=== PATIENT | female | born 1965 | race Hispanic/Latino ===

== ENCOUNTER 2024-12-07 00:36 | Day surgery (SDC) | payer OTHER, SELFPAY ==
[2024-12-01 13:20] VITALS: BP 123/70; PULSE 71; RESP 16; TEMP 37; O2SAT 99; BMI 31.5
--- NOTE | 2024-12-01 13:44 | PC.NURSE ---
Report to the Outpatient Waiting Room, entrance under the green pavilion located off [facility], at time __11:15am____ on date ___12/07/24____. Planned Procedure Time: __1:15pm .? Time changes happen often and if your time is changed the preop area will call you the afternoon before. - You and your visitor will be asked to self-screen and do not enter if you have any COVID symptoms. Please call surgeon if you need to reschedule. - A mask is optional within the hospital at this time. NOTHING TO EAT OR DRINK FOR 8 HOURS PRE-OP ER DR GUEVARA- CLEAR LIQUIDS ONLY UNTIL 5:30AM./TOTAL OF 20 OZ. - No food from midnight until time of surgery and no smoking, or chewing tobacco (or any form of nicotine). No chewing gum, candy or mints. Take only the following medications with a SIP of water on the morning of surgery: none DO NOT STOP ANY OF YOUR OTHER PRESCRIPTION MEDICATIONS PRIOR TO SURGERY EXCEPT THE FOLLOWING Hold all vitamins and supplements for 3 days per anesthesiologist. Medications to discontinue per physician NONE Date to take last dose Please no make-up, nail wolof, hairspray, perfume, deodorant, or body powder the day of surgery.? No jewelry (including any body piercings) or valuables the day of surgery, leave them at home.? Please take a shower or bath the night before, or the morning of, surgery with an antibacterial soap.? Wear comfortable, loose fitting clothing.? - Jewelry must be removed prior to entering the operating room.? Rings and piercings that are not removed may be cut off. - The hospital will not accept responsibility for valuables.? - Please leave all valuables, including medications, at home the day of surgery. If you are going home after surgery, a licensed set key driver must drive you home.? - NO public transportation without another adult if you receive anesthesia. - We recommend that an adult stay with you for 24 hours following discharge. - We also recommend that you do not drive, make important decision, drink alcoholic beverages, or take any drugs that were not prescribed by your health care provider for at least 24 hours after your discharge time. Follow any additional instructions given to you from your surgeon. Telephone instructions given to ____PATIENT and asked if any additional questions and then verbalized understanding. Patient advised to call surgeon office or pre surgery nurse liaison [phone] if any additional questions.
[2024-12-07] VITALS (7 sets, daily range): BP systolic 107–141; BP diastolic 42–93; PULSE 51–69; RESP 12–17; TEMP 36.1–37.4; O2SAT 95–100
--- NOTE | ~2024-12-07 | XR_ITS ---
EXAMINATION: XR surgery orthopedic DATE: 12/07/2024 13:32 INDICATION: Left first digit ligament repair TECHNIQUE: 5 fluoroscopic images of the left thumb were obtained during procedure performed by Dr. Ab kirby. Radiologist was not present for the imaging or procedure. The amount of fluoroscopy time us ed during this procedure was 0.1 minutes. Total DAP was 0.599 cGycm^2. COMPARISON: None. FINDINGS: Line initial image demonstrates percutaneous fixation pins advanced into the ulnar aspect o f the base of the first proximal phalanx and head of the first metacarpal. There is radial subluxatio n at the first metacarpophalangeal joint suggesting insufficiency of the ulnar collateral ligament co mplex. This subluxation appears reduced on the subsequent images. The fixation pins have been removed on the final image where there is normal alignment on the dorsal palmar projection which could be du e to interval ulnar collateral ligament repair. There is a small amount of expected postoperative gas in the soft tissues at the ulnar side of the first metacarpophalangeal joint. No fractures identifie d. 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 IMPRESSION: 1. Fluoroscopy utilized during likely first metacarpophalangeal ulnar collateral ligament repair. See procedure note for further detail. Reviewed, dictated and finalized at location A. IMPRESSION: 1. Fluoroscopy utilized during likely first metacarpophalangeal ulnar collatera l ligament repair. See procedure note for further detail.
--- OUTSIDE RECORDS SUMMARY | 2024-12-07 00:38 | XMS_ITS | Data Portability ---
Author Organization [place] [facility], Main Office Address [address] [place] [address] Care Team Providers Care Radiology Equipment Servicer Name Role Phone AJAY LAMBERT Primary Care Provider [phone] AJAY LAMBERT Referring Provider Assessment Encounter Date Assessment Date Assessment LastModified by Organization Details LastModified Time 04/01/2023 04/01/2023 57-year-old female presents for evaluation of her right hand. She is Tamazight-speaking and the visit was conducted with a video java golden gate developer. She is a previous patient from Dr. Lopez. She has a history of a cyst excision of the right index D IP joint on 10/17/2021 and had a fusion of the right index DI P on 08/28/2022. Overall she has been doing fine. She reports some numbness tingling in the fingers radiating from the wrist. She does have pain at night that she has to shake out. She has not had any treatments for this. Review of systems per patient questionnaire Physical exam: She has a well-healed incision over her right ankle that Andrew finger. No pain over the finger. She has some subjectively diminished sensation, two-point discrimination intact throughout the fingers. Brisk cap refill, 2+ radial pulse. He does have positive Tinel's and Phalen's over the wrist. She has recovered from her previous surgeries, but now has some carpal tunnel symptoms. We will begin with a course of meloxicam and a carpal tunnel brace for nights. We will have her follow-up in 2 months for recheck. She is in agreement with the plan, all questions concerns were addressed. Not available 04/01/2023 23:13:51 07/20/2024 07/20/2024 59-year-old female presents for evaluation of her bilateral hands. She reports a new problem with cysts on multiple fingers. Visit today was done via video java golden gate developer. We last saw her in March of 2023. She has a history of a mucous cyst on her right index finger status post removal with Dr. Lopez in 2021 and a fusion of the right index D IP in 2022. She now has similar cysts on her right hand on the middle and ring D IP joints and also on the left middle D IP joint. She reports they get bigger and smaller. They bother her with movement of the hand. At her last visit we saw her for bilateral carpal tunnel concerns and she says those are resolved. She has proximally 5 mm mucous cysts on the dorsal D IP joint of the right middle and ring finger and left middle finger. She has sensation intact to light touch throughout. 2+ radial pulse. X-rays were reviewed, demonstrating previous screw in the right index finger intact, with degenerative changes of the other small joints We will begin with a course of anti-inflammatori es for her mucous cysts. We gave her an order for meloxicam. We will have her follow-up as needed. If she has persistent symptoms, the next step would be to consider aspiration or surgical excision. She is in agreement with the plan. Not available 07/20/2024 17:15:12 09/21/2024 09/21/2024 59-year-old female presents for evaluation of her left thumb. She had a fall about 3 weeks ago and jammed her thumb. Since then she has had pain, swelling, and weakness with gripping. She presented to the emergency room where she was placed into a fiberglass splint. She has weaned herself out of that in his wearing a thumb spica brace. She is Tamazight-speaking, visit today was conducted with a family member assisting with translating Review of systems per patient questionnaire Physical exam: She has tenderness over the thumb UCL proximally. She has no firm endpoint with increased gapping compared to the contralateral side. She has sensation intact to light touch throughout, 2+ radial pulse X-rays reviewed, demonstrating no acute bony abnormality She has a sprain of the thumb UCL proximally. Given her increased laxity with no endpoint, I would like to send her for MRI to confirm the diagnosis and evaluate for the presence of a Stener lesion. If the diagnosis is confirmed, I would send her to a hand specialist to discuss surgery for ligament repair versus reconstruction. She also complains of a digital mucous cyst on her D IP joint, and we discussed that if she is getting surgery for the thumb they can take care of that as well at the same time. She is in agreement with the plan. We will have her follow-up after the MRI. Not available 09/21/2024 16:44:37 10/12/2024 10/12/2024 59-year-old female presents for follow-up of her left hand. She had a thumb UCL injury that we sent for an MRI. She is here to review that. She still has persistent cyst over her dorsal ring finger. Otherwise she reports feeling better, rates 1 /10 for the left side. She still has tenderness and some swelling over the thumb UCL. She also has a mucous cyst over the DP of the ring finger MRI was reviewed, demonstrating a thumb UCL tear Given her ligament tear, I would like to refer her to a hand specialist for evaluation of treatment procedures which may include surgery. With regards to her mucous cyst, she says it is becoming more painful and she wants to get rid of it. We performed an aspiration and cortisone injection of the cyst. We got a couple cc of gelatinous material consistent with a cyst. She will follow up as needed. Not available 10/12/2024 16:29:17 Plan of Treatment Reminders Order Date Submit Date Provider Last Modified By Organization Details Last Modified Time Details Appointments None recorded. Lab None recorded. Referral hand surgeon referral - Please contact pt to schedule apt for L thumb. 2024 025 AUREA Gomes MD, [address], [place], [address], 5 17:35:20 Procedures injection/ aspiration joint/burs a (PROC) 2024 025 [email or web address] 1 In-Office Order, Internal Use Only DO Not Attach Compendium DO Not Attach Compendium, Do Not Delete/merge, [id number] 15:18:41 injection/ aspiration joint/burs a (PROC) - in office procedure, administer ed by provider 2022 023 [email or web address] In-Office Order, Internal Use Only DO Not Attach Compendium DO Not Attach Compendium, Do Not Delete/merge, [id number] 3 15:16:26 Surgeries None recorded. Imaging MRI, thumb(s), w/o contrast 2024 025 [facility] ([facility]), [address] [place], [address], 5 20:09:31 XR, hand, 3 or more view 2024 025 [email or web address] [facility], [address], [place], [address], 5 08:50:45 XR, hand, 3 or more view 2022 023 [email or web address] [facility], [address], [place], [address], 3 16:11:20 Medication Orders bupivacain e HCl 0.5 % (5 mg/mL) injection solution 2024 0[address] [facility], [address] [place] [address], [id number], 5 15:30:31 Kenalog 10 mg/mL suspension for injection [address] [facility] [address] [facility], [address] [place] [address], [id number], 5 15:30:31 Mobic 15 mg tablet 2024 025 [facility], [address] [place] [address], [id number], 5 17:21:25 Mobic 15 mg tablet 2022 [email or web address] [facility], [address] [place] [address], [id number], 16:31:11 Kenalog 10 mg/mL suspension for injection 2022 023 Not available 16:31:22 ropivacain e (PF) 5 mg/mL (0.5 %) injection solution 2022 023 [email or web address] Not available 16:31:18 meloxicam 7.5 mg tablet 2022 023 [email or web address] [facility], [address] [place] [address], [id number], 16:31:26 Patient TargetsNo targets recorded. Patient InstructionsNo instructions recorded. Reason for Referral Hand Surgeon Referral for Pa in in left thumb L thumb UCL Please contact pt to schedule apt for L thumb. Referring Physician: Ayad Back, Orthopedic Surgery, Encounter Date: 10/12/2024 Results Created Date Observation Date Name Description Value Unit Range Abnormal Flag Note LastModifiedBy Organization Detail LastModifiedTime 11/05/19 23 XR, hand, 3 or more view No observ ation record ed. [email or web address] [facility] [place] [facility] [address], [place], [address], 11/04/2022 16:11:19 11/04/19 24 11/04/2023 XR, foot [facility] [address] [place] [address] Patien t Name: DOMINGO MENDOZA Access ion #: [id number] Sex: F : 1964 9 Dictat ed By: Coy Sharp Attend ing Physic shiraz: VANIA LAMBERT Orderi Physic shiraz: VANIA LAMBERT Exam Date: 2023 16:48 PM Exam Name: XR FOOT LT 3V+ Admitt ing Diagno sis(es ): CLINIC AL INDICA TION: pain TECHNI QUE: 3 radiog raphic views of the left foot were obtain ed. FINDIN GS/ IMPRES YAIR: There is no eviden ce of acute fractu re or disloc ation. The visual ized joint space is well mainta ined. The alignm ent is anatom ical. There is no radiop aque foreig n body. Electr onical ly Signed by: Coy Sharp at 2023 17:44: 49 PM Page 1 [email or web address] [facility] ([facility]aging) [address] [place], [address], 01/19/2024 08:59:12 07/01/20 24 07/01/2024 XR, lumba r spine [facility] [address] [place] [address] Patien t Name: STEVEN WALTERJOEL JIMENEZ Access ion #: [id number] Sex: F : 1964 8 Dictat ed By: Mireya Valdez Attend ing Physic shiraz: VANIA LAMBERT Orderi Physic shiraz: VANIA LAMBERT Exam Date: 2023 15:03 PM Exam Name: XR L SPINE Admitt ing Diagno sis(es ): INDICA TION: LBP COMPAR CARLITO: None TECHNI QUE: 3 views of the lumbar spine were obtain ed. FINDIN GS: The lumbar verteb ral alignm ent is normal . Modera te degene rative disc diseas e at L5-S1. No acute fractu re, verteb ral compre ssion deform ity or aggres sive osseou s lesion s. The parave rtebra l soft tissue s are grossl y unrema rkable . IMPRES YAIR: No acute fractu re. Electr onical ly Signed by: Mireya Valdez at 2023 16:39: 59 PM Page 1 INTERFACE [facility] ([facility]) [address] [place], [address], 07/01/2024 17:40:43 07/20/19 25 XR, hand, 3 or more view No observ ation record ed. [email or web address] [facility] [place] [address], [place], [address], 07/20/2024 15:26:37 09/20/19 25 09/14/2024 XR, hand, 3 or more view No observ ation record ed. [email or web address] Not Available 09/03 16:50:00 10/05/19 25 10/04/2024 MRI, thumb (s), w/o contr ast No observ ation record ed. [facility] [address] [place], [address], 10/12/2024 09:42:06 Result Notes None recorded. Problems Name Problem SNOMED Code Status Onset Date Resolution Date Notes Provider Name and Address Organization Details Recorded Time Digital mucous cyst of right hand 1335875435177 103 Active 2021 Not Available [facility] 3 18:52:55 Pain of left hand 7959630488513 03 Active 2021 Not Available [facility] 3 18:52:56 Pain in right hand 0235451385986 09 Active 2021 Not Available [facility] 3 18:52:56 Osteoarthr itis 345671732 Active 2021 Not Available [facility] 3 18:52:56 Localized, primary osteoarthr itis of the hand Active 2022 VIDA Pete null, [employer] [facility] [employer] 3 14:07:45 Localized, primary osteoarthr itis of the hand 843004728 Active 2022 Lizzy Rodriguez null, [employer] 3 15:15:12 Pain of bilateral hands 6664929779446 9109 Active 2024 VIDA Kimble null, [employer] [facility] [employer] 5 15:27:14 Pain in left thumb 3846224993745 100 Active 2024 Lashae Paz ATC L null, [place] [employer] [facility] [employer] 16:18:02 Problem Notes None recorded. Procedures Surgical History Date Name Laterality Status Provider Name and Address Organization Details Recorded Time 10/13/19 Ortho - Cortisone Injection completed Ayad Back MD [address], [facility] [address], [place], [address], [facility] [employer] 10/12/2024 16:27:13 Appendectomy completed Not Available [employer] 09/03/2022 18:52:07 Imaging Results None recorded. Procedure Notes None recorded. Medical Equipment None Reported. Medications Name Sig Start Date Stop Date Status Note LastModified by Organization Details LastModified Time cyclobenzap rine 10 mg tablet 04/10 completed Not Available Not Available Not Available amoxicillin 500 mg capsule TAKE ONE CAPSULE BY MOUTH EVERY 8 HOURS FOR 10 DAYS with a meal 08/12 completed Not Available Not Available Not Available metformin 500 mg tablet 04/10 completed Not Available Not Available Not Available atorvastati n 20 mg tablet 04/10 completed Not Available Not Available Not Available cetirizine 10 mg tablet TAKE ONE TABLET BY MOUTH EVERY MORNING FOR ALLERGIES 07/14 completed Not Available Not Available Not Available Tab-A-Avtar tablet 04/10 completed Not Available Not Available Not Available azithromyci n 250 mg tablet TAKE 2 TABLETS BY MOUTH ON DAY 1, THEN TAKE 1 TABLET DAILY ON DAYS 2-5 07/20 completed Not Available Not Available Not Available ibuprofen 800 mg tablet TAKE ONE TABLET BY MOUTH THREE TIMES DAILY, MORNING, MIDDAY & IN THE EVENING 07/20 completed Not Available Not Available Not Available hydrocodone 5 mg-acetamin ophen 325 mg tablet TAKE ONE TABLET BY MOUTH EVERY 6 HOURS NEEDED pain (moderate 4-6 ON scale) 07/14 completed Not Available Not Available Not Available meloxicam 15 mg tablet TAKE ONE TABLET BY MOUTH EVERY MORNING FOR PAIN active Not Available Not Available No t Available bupivacaine HCl 0.5 % (5 mg/mL) injection solution Take 0.5 mL by injection route. 2024 active Not Available Not Available Not Avai lable clobetasol 0.05 % topical cream APPLY TO THE AFFECTED AREA(S) TWICE DAILY EVERY MORNING & EVENING 07/20 completed Not Available Not Available Not Available permethrin 5 % topical cream 04/10 completed Not Available Not Available Not Available sulfamethox azole 800 mg-trimetho prim 160 mg tablet 04/10 completed Not Available Not Available Not Available peg-electro lyte solution 420 gram oral solution 04/10 completed Not Available Not Available Not Available triamcinolo ne acetonide 0.1 % topical cream 04/10 completed Not Available Not Available Not Available levothyroxi ne 25 mcg tablet TAKE ONE TABLET BY MOUTH EVERY MORNING 30 MINUTES BEFORE BREAKFAST FOR THYROID active Not Available Not Available No t Available meloxicam 7.5 mg tablet TAKE ONE TABLET BY MOUTH EVERY DAY 07/14 completed Not Available Not Available Not Available Kenalog 10 mg/mL suspension for injection Take 0.5 mL by injection route. 2024 active [facility] [place]NOTE 2]: 0003- 0494- 20 Not Available Not Available Not Available benzonatate 100 mg capsule TAKE ONE CAPSULE BY MOUTH THREE TIMES DAILY NEEDED FOR 7 DAYS 02/13 completed Not Available Not Available Not Available promethazin e 25 mg tablet 04/10 completed Not Available Not Available Not Available omeprazole 20 mg capsule,del ayed release TAKE ONE CAPSULE BY MOUTH EVERY DAY FOR 10 DAYS 02/13 completed Not Available Not Available Not Available ergocalcife rol (vitamin D2) 1,250 mcg (50,000 unit) capsule TAKE ONE CAPSULE BY MOUTH ONCE a WEEK 02/13 completed Not Available Not Available Not Available clobetasol 0.05 % topical ointment 04/10 completed Not Available Not Available Not Available ibuprofen 600 mg tablet 04/10 completed Not Available Not Available Not Available estradiol 0.01% (0.1 mg/gram) vaginal cream 04/10 completed Not Available Not Available Not Available methylpredn isolone 4 mg tablets in a dose pack Use as directed on package 08/12 completed Not Available Not Available Not Available fluticasone propionate 50 mcg/actuati on nasal spray,suspe nsion SPRAY ONE PUFF IN EACH NOSTRIL EVERY DAY FOR ALLERGIES 02/13 completed Not Available Not Available Not Available clotrimazol e 1 % topical cream 04/10 completed Not Available Not Available Not Available amoxicillin 875 mg-potassiu m clavulanate 125 mg tablet 08/12 completed Not Available Not Available Not Available amoxicillin 500 mg-potassiu m clavulanate 125 mg tablet TAKE ONE TABLET BY MOUTH TWICE DAILY EVERY MORNING & EVENING. drink with large GLASS of water. active Not Available Not Available No t Available rosuvastati n 10 mg tablet TAKE ONE TABLET BY MOUTH AT BEDTIME 02/13 completed Not Available Not Available Not Available nitrofurant oin monohydrate /macrocryst als 100 mg capsule TAKE 1 CAPSULE BY MOUTH TWICE A DAY 04/10 completed Not Available Not Available Not Available lidocaine (PF) 10 mg/mL (1 %) injection solution In office injection administe red by the provider 08/12 completed [facility] [place]NOTE 2]: 0409- 4276- 17 Not Available Not Available Not Available calcium 600 mg (as carbonate)- vitamin D3 10 mcg (400 unit) tablet 04/10 completed Not Available Not Available Not Available Pylera 140 mg-125 mg-125 mg capsule TAKE THREE CAPSULES BY MOUTH FOUR TIMES DAILY FOR 10 DAYS 07/14 completed Not Available Not Available Not Available ropivacaine (PF) 5 mg/mL (0.5 %) injection solution IN OFFICE 07/14 completed [facility] [place]NOTE 2] 39433 -064- 01 Not Available Not Available Not Available Vitals Date Recorded Body height Body mass index (BMI) Body weight Provider Name and Address Organization Details Last Updated DateTime 07/20/2024 157.48 cm 31.1 kg/m2 31388.7 g VIDA Kimble [employer] 07/20/2024 15:25:16 Date Recorded Body height Body mass index (BMI) Body weight Provider Name and Address Organization Details Last Updated DateTime 09/21/2024 157.48 cm 30.4 kg/m2 93781.33 g STACY Fernandes [employer] 09/21/2024 15:36:30 Date Recorded Body height Body mass index (BMI) Body weight Provider Name and Address Organization Details Last Updated DateTime 10/12/2024 157.48 cm 30.4 kg/m2 61742.33 g Rahel Darby [employer] 10/12/2024 15:02:51 Date Recorded Body height Provider Name an d Address Organization Details Last Updated DateTime 11/04/2022 157.48 cm Brennan Perez [facility] [employer] [facility] 11/04/2022 14:58:08 Date Recorded Body height Body mass index (BMI) Body weight Provider Name and Address Organization Details Last Updated DateTime 04/01/2023 157.48 cm 30.4 kg/m2 20360.33 g Kellie Pyle [facility] [employer] [facility] 04/01/2023 15:22:38 Social History Question Answer Notes LastModified by [employer] Details LastModified Time Tobacco Smoking Status Current Every Day Smoker Not Available [facility] 09/03/2022 18:52:01 What Was The Date Of Your Most Recent Tobacco Screening? 07/20/2024 [email or web address] Information not available 07/20/2024 How Much Tobacco Do You Smoke? 1 PPW [id number] Information not available 09/03/2022 Sex: Female Functional Status Question Answer Note LastModified by [employer] Details LastModified Time What is your level of alcohol consumption? Occasional [id number] Information not available 09/03/2022 Mental Status None recorded. Family History Relationship Description Onset Age of this Age Resolved Age Notes LastModified by Organization Details LastModified Time Mother Diabetes mellitus [id number] Not available 09/03/2022 18:52:08 Unspecified Relation Family history of malignant neoplasm [id number] Not available 09/03/2022 18:52:08 Medical History Condition Response ARTHRITIS Y CANCER: SPECIFY Y Gynecological HistoryNo gynecological history recorded. Obstetrics History GPAL:G 0 P 0 0 0 0 Past Encounters Encounter ID Performer Location Encounter Start Date Encounter Closed Date Diagnosis/Indication Diagnosis SNOMED-CT Code Diagnosis ICD10 Code Diagnosis Note [id number] Kurtis Lopez MD [facility] [place] [facility] [address] [place] [address] 04/10/2021 00:00:00 04/10/2021 17:22:33 [id number] Kurtis Lopez MD [facility] [place] [address] [place] [address] 08/09/2021 00:00:00 08/09/2021 12:03:22 [id number] Kurtis Lopez MD [facility] [place] [address] [place], [place] [address] 10/04/2021 00:00:00 10/04/2021 10:43:43 [id number] Kurtis Lopez MD [facility] [place] [address] [place], [place] [address] 11/06/2021 00:00:00 11/06/2021 14:51:02 [id number] Kurtis Lopez MD [facility] [place] [address] [place], [place] [address] 12/31/2021 00:00:00 12/31/2021 16:56:09 [id number] Kurtis Lpoez MD [facility] [place] [address] [place], [place] [address] 08/12/2022 00:00:00 08/12/2022 17:19:27 [id number] Kurtis Lopez MD [facility] [place] [address] [place], [place] [address] 09/16/2022 14:04:39 09/16/2022 14:42:16 Pain in right hand 2384441030 73308 M79.641 Osteoarthritis 953770258 M19.049 we will see the patient back again in 4 weeks for an x-ray of the right index finger remove sutures today gave her some Coban wrap to protect the finger Digital mu cous cyst of right hand 4409354201 779635 M67.441 Localized, primary osteoarthritis of the hand 208197285 M19.049 [id number] Kurtis Lopez MD [facility] [place] [address] [place] [place] [address] 11/04/2022 14:55:49 11/04/2022 15:25:14 Pain in right hand 8686410391 15010 M79.641 Osteoarthritis 035279421 M19.049 Digital mu cous cyst of right hand 9808472851 772337 M67.441 we aspirated it got back thick clear gel consistent with mucous cyst and injection 1 cc xylocaine 1 cc Kenalog into each D IP joint. See her back in a few months for follow-up. Put her on meloxicam once daily for her arthritis Localized, primary osteoarthritis of the hand 901719043 M19.041 [id number] Ayad Back MD [facility] [place] [address] [place] [address] 04/01/2023 15:20:34 04/01/2023 16:35:08 Pain in right hand 3516328896 78453 M79.664 [id number] Ayad Back MD [facility] [place] [address] [place] [address] 07/20/2024 15:07:13 07/20/2024 15:46:37 Digital mucous cyst of right hand 8939221726 637674 M67.441 Pain of bi lateral hands 7829791775 8438199 M79.652 [id number] Ayad Back MD [facility] [place] [address] [place] [address] 09/21/2024 15:33:27 09/21/2024 16:40:13 Digital mucous cyst of right hand 5892844006 452019 M67.441 Pain of left hand 887592 3167 65996 M79.642 Pain in left thumb 25580 82602 295333 M79.755 [id number] Ayad Back MD [facility] [place] [address] [place] [address] 10/12/2024 15:00:17 10/12/2024 15:43:03 Pain in left thumb 4353541488 096187 M79.645 Digital mu cous cyst of right hand 4606703004 238970 M67.441 Pain of bi lateral hands 3744196918 3430230 M79.643 Localized, primary osteoarthritis of the hand 332627513 M19.041 Pain of left hand 872764 1657 90960 M79.642 Health Concerns Section Related Observation LastModified by Organization Detai ls LastModified Time None Recorded Concern Status LastModified by Organization Details LastModified Time None Recorded Advance Directives Directive None Recorded Payers Encounter Date Sequence Insurance Name Policy Number Policy Salas Covered Member ID Salas Member ID Guarantor Name 11/04/2022 1 [employer] [place] [id number] Christa Mendoza [id number] Christa Riveda Mendoza 04/01/2023 1 [employer] [place] [id number] Christa Mendoza [id number] Christa Riveda Mendoza 07/20/2024 1 [employer] [place] [id number] Christa Mendoza [id number] Christa Riveda Mendoza 09/21/2024 1 [employer] [place] [id number] Christa Mendoza [id number] Christa Riveda Mendoza 10/12/2024 1 [employer] [place] [id number] Christa Mendoza [id number] Christa Riveda Mendoza Notes Date Note Type Note Provider Name and Address Organization Details Recorded Time 11/04/2022 text/html patient underwen t right index D IP arthrodesis 2 months ago doing very well she is developing small mucous cyst on the right and the left long D IP joints Kurtis Lopez MD [address] [place] [address], [place] [address], [place], [address], [place] [facility] 11/04/2022 16:12:04 OBGyn Episode No OBEpisode recorded.
--- OUTSIDE RECORDS SUMMARY | 2024-12-07 00:38 | XMS_ITS | Clinical Summary ---
Author Organization [facility] Treasure Data Address [address] [place] [address] Care Team Providers Care Reformatory Attendant Name Role Phone Unavailable Primary Care Provider Unavailabl e Source Comments [facility],non-owned Affiliates and Associated Physician Practices is amultiple site organization consisting of ambulatory clinics and hospital sitesin [place], [place], [place] and [place]. This disclosure is being madepursuant to the Care Everywhere program and may not contain all information available regarding this patient. Last updated 18.[facility] Treasure Data Allergies No known active allergies Medications * Be aware that medications may not be up to date on this document. Alwaysverify current medications with the patient. atorvastatin (LIPITOR) 20 MG tablet Take 20 mg by mouth once daily 08/25/2019 Active metFORMIN (GLUCOPHAGE) 500 MG tablet Take 500 mg by mouth 2 times daily 08/25/2019 Active triamcinolone acetonide (KENALOG) 0.1 % cream Apply to affected area once daily 08/25/2019 Active clobetasol (TEMOVATE) 0.05 % ointmentIndicat ions:Granuloma annulare Apply to affected area on hands BID. 30 day supply. 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 Immunizations Immunization Administration Dates Next Due INFLUENZA VACCINE 06/07/2019 Family History Medical History Relation Name Comments None Known Brother None Known Father None Known Maternal Aunt None Known Maternal Grandfather None Known Maternal Grandmother None Known Maternal Uncle None Known Mother None Known Other None Known Paternal Aunt None Known Paternal Grandfather None Known Paternal Grandmother None Known Paternal Uncle None Known Sister Asthma Neg Hx CVA Neg Hx Cancer - Breast Neg Hx Cancer - Other Neg Hx Cancer - Skin, Melanoma Neg Hx Cancer - Skin, Non Melanoma Neg Hx Eczema Neg Hx Hemophilia Neg Hx Psoriasis Neg Hx Relation Name Status Comments Brother Father Maternal Aunt Maternal Grandfather Maternal Grandmother Maternal Uncle Mother Other Paternal Aunt Paternal Grandfather Paternal Grandmother Paternal Uncle Sister Social History Tobacco Use Types Packs/Day Years Used Date Smoking Tobacco: Every Day Cigarettes Smokeless Tobacco: Never Comments Unknown Sex and Gender Information Value Date Recorded Sex Assigned at Not on file Legal Sex Female 8:26 AM [employer] Gender Identity Not on file Sexual Orientation Not on file Plan of Treatment Health Maintenance Due Date Last Done Comments COLOGUARD (AGES 45-75) - COL ON CA SCREENING 1963 COLON MONITORING 1963 COLONOSCOPY - COLON CA SCREENING 1963 CT COLONOGRAPHY - COLON CA SCREENING 1963 Colorectal Cancer Screening 1963 FIT - COLON CA SCREENING 1963 FLEX SIG - COLON CA SCREENING 1963 MAMMOGRAM 1963 PAP SMEAR 1963 HIV SCREENING 1978 HEPATITIS C SCREENING 04/22/1981 DTAP/TDAP/TD VACCINES (1 - Tdap) 1982 PNEUMOCOCCAL VACCINE 50+ (1 of 2 - PCV) 1982 ZOSTER VACCINE (1 of 2) 2013 COVID-19 VACCINE ( - 2023-2 5 season) 2024 DEPRESSION SCREENING 07/06/2024 INFLUENZA VACCINE (Season Ended) 2025 06/07/20 19 Respiratory Syncytial Virus (RSV) Vaccine Pt: or over 60 yrs (1 - 1-dose 75+ series) 2038 HEPATITIS B VACCINE Aged Out No longe r eligible based on patient's age to complete this topic HIB VACCINE Aged Out No longer eligi ble based on patient's age to complete this topic HPV VACCINE Aged Out No longer eligi ble based on patient's age to complete this topic MENINGOCOCCAL (Group B) VACC INE SHARED DECISION-MAKING Aged Out No longer eligibl e based on patient's age to complete this topic MENINGOCOCCAL GROUPS A/C/Y/W VACCINE Aged Out No longer eligible b ased on patient's age to complete this topic Insurance Member Subscriber Plan / Payer (Ef fective 2017-Present) Name:Maritza Mendozadra Relation to Subscriber:Self Name:TIM MENDOZA Payer ID:Not on file Group ID:Not on file Type:Medicaid [place] Address: [address]
--- OUTSIDE RECORDS SUMMARY | 2024-12-07 00:38 | XMS_ITS | Data Portability ---
Author Organization JULIO CÉSAR - ATTILAHaroon Enriquez Address [address] [place] [address] Care Team Providers Care Laboratory Operations Coordinator Name Role Phone AJAY HANKINS Primary Care Provider Unavailabl e Assessment Encounter Date Assessment Date Assessment LastModified by Organization Details LastModified Time 12/16/2023 12/16/2023 Z-Yunior and we will keep her appointment for her chronic problems in June Not available 01/10/2024 17:31:10 05/25/2024 05/25/2024 for the leg we will try some ibuprofen. Chronic dermatitis refill clobetasol obesity healthy lifestyle care instructions fatigue blood work given her throat issues we will get monotest as well my suspicion is low though and then she will follow up with me June 22 for her leg [email or web address] Not available 05/28/2024 14:05:20 06/22/2024 06/22/2024 x-ray lumbar spine physical therapy quitting tobacco care instructions healthy lifestyle care instructions return to clinic 6 weeks [email or web address] Not available 06/22/2024 22:48:35 08/03/2024 08/03/2024 quitting tobacco care instructions continue with medications we will consider pneumococcal vaccination we will follow up in Not available 08/06/2024 21:02:02 09/27/2024 09/27/2024 Will get records from hysterectomy to try to determine if cervix was removed and if ovaries were removed. [email or web address] Not available 09/27/2024 16:50:24 Plan of Treatment Reminders Order Date Submit Date Provider Last Modified By Organization Details Last Modified Time Details Appointments None recorded. Lab CMP, serum or plasma 2023 024 [facility], [address] [facility] [address], [address], [place], [address], 4 15:11:58 T3, free, serum or plasma 2023 024 [facility], [address] [facility] [address], [address], [place], [address], 4 15:12:03 TSH, ultra-sensi tive, serum 2023 [facility], [address] [facility], [address], [place], [address], 4 15:12:00 unlisted lab - T4, free 2023 024 [facility], [address] [place] [address], [address], [place], [address], 4 15:11:56 CBC w/ auto diff 2023 024 [facility], [address] [facility] [address], [address], [place], [address], 4 15:12:01 heterophile Ab, qualitative latex agglutinati on, serum 2023 024 [facility], [address] [place] [address], [address], [place], [address], 4 15:11:57 Referral physical therapist referral - Pt speaks yakut. 2023 024 [facility], [address] [facility], [place], [address], 5 11:41:33 Procedures None recorded. Surgeries None recorded. Imaging MAMMO, screening, digital, bilateral 2024 025 [facility] ([facility]), [address] [place], [address], 5 17:25:03 XR, lumbosacral spine, 2 or 3 view 2023 024 [facility] ([facility]), [address] [place], [address], 4 17:42:46 Medication Orders Augmentin 500 mg-125 mg tablet 2024 025 [facility], [address] [place] [address], [id number], 5 17:06:00 levothyroxi ne 25 mcg tablet 2024 025 [email or web address] [facility], [address] [place] [address], [id number], 5 20:13:33 ibuprofen 800 mg tablet 2023 024 [facility], [address] [place] [address], [id number], 4 17:29:27 clobetasol 0.05 % topical cream 2023 024 [facility], [address] [place] [address], [id number], 4 00:15:56 Zithromax Z-Yunior 250 mg tablet 2023 024 [facility], [address] [place] [address], [id number], 4 09:51:24 Patient TargetsNo targets recorded. Patient Instructions Encounter Date Encounter Id Patient Instructions Last Modified By Organization Details Last Modified Time 05/25/2024 [id number] A healthy lifestyle: care instructions [email or web address] Not available 05/25/2024 17:19:57 06/22/2024 [id number] un estilo de vid a sammy: instrucciones de cuidado - [A healthy lifestyle: care instructions] [email or web address] Not available 06/23/2024 15:33:02 Dejar el tabaco: Instrucciones de cuidado - [Quitting Tobacco: Care Instructions] [email or web address] Not available 06/23/2024 15:33:02 08/03/2024 [id number] A healthy lifestyle: care instructions Not available 08/03/2024 16:09:58 Quitting Tobacco : Care Instructions [email or web address] Not available 08/03/2024 16:09:58 Reason for Referral Physical Therapist Referral for Low back pain Pt speaks yakut. Referring Physician: Ajay Hankins, Internal Medicine, Encounter Date: 06/22/2024 Results Created Date Observation Date Name Description Value Unit Range Abnormal Flag Note LastModifiedBy Organization Detail LastModifiedTime 05/25/20 24 05/26/2024 EBV ANTIB BROOKLYNN PROFI LE interpretati on: Commen t EBV Inter preta tion Chart Enriquez: Antib brooklynn Prese nt + Antib brooklynn Absen t - Inter preta tion VCA-I gM VCA-I gG EBNA- IgG No previ ous infec tion/ - - - Susce ptibl e Prima ry infec tion (new + + - or recen t) Past Infec tion +or- + + See comme nt below * + - - *Resu lts indic ate infec tion with EBV at some time howev er canno t predi ct the timin g of the infec tion since antib odies to EBNA usual ly devel op after prima ry infec tion or, alter nativ eliu, appro ximat eliu 5-10% of patie nts with EBV never devel op antib odies to EBNA. Not Available [facility] ([facility]) [address] [facility], [place], [address], 05/27/2024 15:11:55 05/25/20 24 05/27/2024 EBV ANTIB BROOKLYNN PROFI LE ebv Ab vca, IgM 50.3 U/mL 0.0-35 .9 above high normal Negat ursula <36.0 Equiv ocal 36.0 - 43.9 Posit ursula >43.9 Not Available [facility] ([facility]) [address] [place], [address], 05/27/2024 15:11:55 05/25/20 24 05/27/2024 EBV ANTIB BROOKLYNN PROFI LE ebv Ab vca, IgG >600.0 U/mL 0.0-17 .9 above high normal Negat ursula <18.0 Equiv ocal 18.0 - 21.9 Posit ursula >21.9 Not Available [facility] ([facility]) [address] [place], [address], 05/27/2024 15:11:55 05/25/20 24 05/27/2024 EBV ANTIB BROOKLYNN PROFI LE ebv nuclear antigen Ab, IgG >600.0 above high normal Negat ursula <18.0 Equiv ocal 18.0 - 21.9 Posit ursula >21.9 Not Available [facility] ([facility]) [address] [place], [address], 05/27/2024 15:11:55 05/25/20 24 05/26/2024 T4, FREE T4,free(dire ct) 0.99 NG/dL 0.82-1 .77 Not Available [facility] ([facility]) [address] [place], [address], 05/27/2024 15:11:56 05/25/20 24 05/26/2024 MONON UCLEO SIS, QUAL W/REF JAIRO mononucleosi s test, qual NEGATI VE negati ve The sensi tivit y of Heter ophil e antib brooklynn testi ng is 80-90 %. Epste in Jo IgM testi ng offer s highe r sensi tivit y. Not Available [facility] ([facility]) [address] [place], [address], 05/27/2024 15:11:57 05/25/20 24 05/26/2024 COMP. METAB OLIC PANEL (14) glucose 87 mg/dL 70-99 Not Available [facility] ([facility]) [address] [place], [address], 05/27/2024 15:11:58 05/25/20 24 05/26/2024 COMP. METAB OLIC PANEL (14) BUN 16 mg/dL 8-27 Not Available [facility] ([facility]) [address] [place], [address], 05/27/2024 15:11:58 05/25/20 24 05/26/2024 COMP. METAB OLIC PANEL (14) creatinine 0.77 mg/dL 0.57-1 .00 Not Available [facility] ([facility]) [address] [place], [address], 05/27/2024 15:11:58 05/25/20 24 05/26/2024 COMP. METAB OLIC PANEL (14) eGFR 88 mL/mi n/1.7 3 >59 Not Available [facility] ([facility]) [address] [place], [address], 05/27/2024 15:11:58 05/25/20 24 05/26/2024 COMP. METAB OLIC PANEL (14) BUN/creatini ne ratio 21 12-28 Not Available [facility] ([facility]) [address] [place], [address], 05/27/2024 15:11:58 05/25/20 24 05/26/2024 COMP. METAB OLIC PANEL (14) sodium 140 mmol/ L 134-14 4 Not Available [facility] ([facility]) [address] [place], [address], 05/27/2024 15:11:58 05/25/20 24 05/26/2024 COMP. METAB OLIC PANEL (14) potassium 4.2 mmol/ L 3.5-5. 2 Not Available [facility] ([facility]) [address] [facility] [place], [address], 05/27/2024 15:11:58 05/25/20 24 05/26/2024 COMP. METAB OLIC PANEL (14) chloride 103 mmol/ L 96-106 Not Available [facility] ([facility]) [address] [place], [address], 05/27/2024 15:11:58 05/25/20 24 05/26/2024 COMP. METAB OLIC PANEL (14) carbon dioxide, total 20 mmol/ L 20-29 Not Available [facility] ([facility]) [address] [place], [address], 05/27/2024 15:11:58 05/25/20 24 05/26/2024 COMP. METAB OLIC PANEL (14) calcium 9.5 mg/dL 8.7-10 .3 Not Available [facility] ([facility] [address] [facility], [address], 05/27/2024 15:11:58 05/25/20 24 05/26/2024 COMP. METAB OLIC PANEL (14) protein, total 7.0 g/dL 6.0-8. 5 Not Available [facility] ([facility]) [address] [facility] [place], [address], 05/27/2024 15:11:58 05/25/20 24 05/26/2024 COMP. METAB OLIC PANEL (14) albumin 4.4 g/dL 3.9-4. 9 Not Available [facility] ([facility]) [address] [facility] [place], [address], 05/27/2024 15:11:58 05/25/20 24 05/26/2024 COMP. METAB OLIC PANEL (14) globulin, total 2.6 g/dL 1.5-4. 5 Not Available [facility] ([facility]) [address] [facility] [place], [address], 05/27/2024 15:11:58 05/25/20 24 05/26/2024 COMP. METAB OLIC PANEL (14) bilirubin, total <0.2 mg/dL 0.0-1. 2 Not Available [facility] ([facility]) [address] [facility], [place], [address], 05/27/2024 15:11:58 05/25/20 24 05/26/2024 COMP. METAB OLIC PANEL (14) alkaline phosphatase 73 IU/L 44-121 Not Available [facility] ([facility]) [address] [facility], [place], [address], 05/27/2024 15:11:58 05/25/20 24 05/26/2024 COMP. METAB OLIC PANEL (14) AST (SGOT) 24 IU/L 0-40 Not Available [facility] ([facility]) [address] [facility], [place], [address], 05/27/2024 15:11:58 05/25/20 24 05/26/2024 COMP. METAB OLIC PANEL (14) ALT (SGPT) 24 IU/L 0-32 Not Available [facility] ([facility]) [address] [facility], [place], [address], 05/27/2024 15:11:58 05/25/20 24 05/26/2024 TSH TSH 4.750 uIU/m L 0.450- 4.500 above high normal Not Available [facility] ([facility]) [address] [facility], [place], [address], 05/27/2024 15:12:00 05/25/20 24 05/26/2024 CBC WITH DIFFE RENTI AL/PL ATELE T WBC 8.3 x10e3 /uL 3.4-10 .8 Eff ectiv e Decem peter 2023 [place] 42824 5 WBC will be made* * non-o rdera ble as a stand -araceli e order code. Not Available [facility] ([facility]) [address] [facility], [place], [address], 05/27/2024 15:12:01 05/25/20 24 05/26/2024 CBC WITH DIFFE RENTI AL/PL ATELE T RBC 4.43 x10e6 /uL 3.77-5 .28 Not Available [facility] ([facility]) [address] [facility], [place], [address], 05/27/2024 15:12:01 05/25/20 24 05/26/2024 CBC WITH DIFFE RENTI AL/PL ATELE T hemoglobin 14.5 g/dL 11.1-1 5.9 Not Available [facility] ([facility]) [address] [facility], [place], [address], 05/27/2024 15:12:01 05/25/20 24 05/26/2024 CBC WITH DIFFE RENTI AL/PL ATELE T hematocrit 42.3 % 34.0-4 6.6 Not Available [facility] ([facility]) [address] [facility], [place], [address], 05/27/2024 15:12:01 05/25/20 24 05/26/2024 CBC WITH DIFFE RENTI AL/PL ATELE T MCV 96 fL 79-97 Not Available [facility] ([facility]) [address] [place], [address], 05/27/2024 15:12:01 05/25/20 24 05/26/2024 CBC WITH DIFFE RENTI AL/PL ATELE T MCH 32.7 pg 26.6-3 3.0 Not Available [facility] ([facility]) [address] [facility], [place], [address], 05/27/2024 15:12:01 05/25/20 24 05/26/2024 CBC WITH DIFFE RENTI AL/PL ATELE T MCHC 34.3 g/dL 31.5-3 5.7 Not Available [facility] ([facility]) [address] [facility], [place], [address], 05/27/2024 15:12:01 05/25/20 24 05/26/2024 CBC WITH DIFFE RENTI AL/PL ATELE T RDW 12.1 % 11.7-1 5.4 Not Available [facility] ([facility]) [address] [facility], [place], [address], 05/27/2024 15:12:01 05/25/20 24 05/26/2024 CBC WITH DIFFE RENTI AL/PL ATELE T platelets 299 x10e3 /uL 150-45 0 Not Available [facility] ([facility]) [address] [facility], [place], [address], 05/27/2024 15:12:01 05/25/20 24 05/26/2024 CBC WITH DIFFE RENTI AL/PL ATELE T neutrophils 48 % notest ab. Not Available [facility] ([facility]) [address] [facility], [place], [address], 05/27/2024 15:12:01 05/25/20 24 05/26/2024 CBC WITH DIFFE RENTI AL/PL ATELE T lymphs 44 % notest ab. Not Available [facility] ([facility]) [address] [facility], [place], [address], 05/27/2024 15:12:01 05/25/20 24 05/26/2024 CBC WITH DIFFE RENTI AL/PL ATELE T monocytes 6 % notest ab. Not Available [facility] ([facility]) [address] [facility], [place], [address], 05/27/2024 15:12:01 05/25/20 24 05/26/2024 CBC WITH DIFFE RENTI AL/PL ATELE T eos 1 % notest ab. Not Available [facility] ([facility]) [address] [facility], [place], [address], 05/27/2024 15:12:01 05/25/20 24 05/26/2024 CBC WITH DIFFE RENTI AL/PL ATELE T basos 1 % notest ab. Not Available [facility] ([facility]) [address] [facility], [place], [address], 05/27/2024 15:12:01 05/25/20 24 05/26/2024 CBC WITH DIFFE RENTI AL/PL ATELE T neutrophils (absolute) 4.0 x10e3 /uL 1.4-7. 0 Not Available [facility] ([facility]) [address] [place], [address], 05/27/2024 15:12:01 05/25/20 24 05/26/2024 CBC WITH DIFFE RENTI AL/PL ATELE T lymphs (absolute) 3.7 x10e3 /uL 0.7-3. 1 above high normal Not Available [facility] ([facility]) [address] [place], [address], 05/27/2024 15:12:01 05/25/20 24 05/26/2024 CBC WITH DIFFE RENTI AL/PL ATELE T monocytes(ab solute) 0.5 x10e3 /uL 0.1-0. 9 Not Available [facility] ([facility]) [address] [place], [address], 05/27/2024 15:12:01 05/25/20 24 05/26/2024 CBC WITH DIFFE RENTI AL/PL ATELE T eos (absolute) 0.1 x10e3 /uL 0.0-0. 4 Not Available [facility] ([facility]) [address] [place], [address], 05/27/2024 15:12:01 05/25/20 24 05/26/2024 CBC WITH DIFFE RENTI AL/PL ATELE T baso (absolute) 0.1 x10e3 /uL 0.0-0. 2 Not Available [facility] ([facility]) [address] [facility], [place], [address], 05/27/2024 15:12:01 05/25/20 24 05/26/2024 CBC WITH DIFFE RENTI AL/PL ATELE T immature granulocytes 0 % notest ab. Not Available [facility] ([facility]) [address] [facility], [place], [address], 05/27/2024 15:12:01 05/25/20 24 05/26/2024 CBC WITH DIFFE RENTI AL/PL ATELE T immature grans (abs) 0.0 x10e3 /uL 0.0-0. 1 Not Available [facility] ([facility]) [address] [facility], [place], [address], 05/27/2024 15:12:01 05/25/20 24 05/26/2024 TRIIO DOTHY MARIO ALBERTO E (T3), FREE triiodothyro nine (T3), free 2.9 pg/mL 2.0-4. 4 Not Available [facility] ([facility]) [address] [facility], [place], [address], 05/27/2024 15:12:03 07/01/20 24 07/01/2024 XR, lumbo sacra l spine , 2 or 3 view No observ ation record ed. [facility] [address] [place], [address], 07/08/2024 13:41:21 09/15/19 25 09/14/2024 XR, hand No observ ation record ed. [facility] [address] [place], [address], 09/15/2024 23:44:45 10/05/19 25 10/04/2024 MRI, finge r(s), w/o contr ast No observ ation record ed. [email or web address] [facility] [address] [place], [address], 10/06/2024 23:58:44 11/16/19 25 11/15/2024 MAMMO , scree rosa, digit al, bilat eral No observ ation record ed. [facility] [address] [place], [address], 11/23/2024 16:39:06 11/16/19 25 11/15/2024 MAMMO , scree rosa, digit al, bilat eral No observ ation record ed. [facility] [address] [place], [address], 11/23/2024 14:57:57 Result Notes None recorded. 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 DDD at facet arthropa thy at C5-C6. 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 Huy pham, [place] - [facility] 6 10:58:02 Obesity 636573666 Active Lucinda De Los Santos PA-C Attn: Accounting ,[address] [facility], [place], [place], [address] [place] [address] , [place] - [facility] 6 11:21:54 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 11/20/2020 PEDRO HECTOR Attn: Accounting ,[address] [facility], [place], [place], [address] [place] [address] , [facility] 1 15:24:51 Varicose veins of lower extremit y 02966971 Active Lucinda De Los Santos PA-C Attn: Accounting ,[address] [facility], [place], [place], [address] [place] [address] , [facility] - [facility] 6 11:21:54 Blood glucose outside referenc e range 196201286 Active Lucinda De Los Santos PA-C Attn: Accounting ,[address] [place], [place], [address] [place] [address] , [facility] - [facility] 6 11:52:56 Hyperlip idemia 66147673 Active Lucinda De Los Santos PA-C Attn: Accounting ,[address] [facility], [place], [place], [address] [place] [address] , [facility] - [facility] 6 10:56:33 Sciatica 96289126 Active Lucinda De Los Santos PA-C Attn: Accounting ,[address] [facility], [place], [place], [address] [place] [address] , [place] [facility] 6 10:11:42 Tobacco dependen ce syndrome 27004139 Active Lucinda De Los Santos PA-C Attn: Accounting ,[address] [place], [place], [address] [place] [address] , [place] [facility] 6 16:15:33 Atopic dermatit is 77266001 Active Lucinda De Los Santos PA-C Attn: Accounting ,[address] [facility], [place], [place], [address] [place] [address] , [place] - [facility] 6 16:15:33 Candidia sis of vagina 76828486 Completed 09/22/2019 PEDRO HECTOR Attn: Accounting ,[address] [facility], [place], [address] , [facility] 0 17:02:58 Atrophic vaginiti s 43009779 Active Huy pham, [facility] 6 11:29:48 Dermatop hytosis 44541239 Active 2016 Lucinda De Los Santos PA-C Attn: Accounting ,[address] [facility], [place], [address] , [facility] 7 18:05:35 Problem Notes None recorded. Procedures Surgical History Date Name Laterality Status Provider Name and Address Organization Details Recorded Time 05/25/20 18 Most Recent Mammogram completed Angi Mendes MA [facility] 07/28/2019 16:21:42 04/09/20 16 Date of Last Pap Smear completed Rosario Levi MA [facility] 04/09/2016 17:23:44 01/04/20 04 Total hysterectomy completed PEDRO HECTOR Attn: Accounting,[address] [facility], [place], [address], [facility] 01/29/2022 15:40:39 Appendectomy completed PEDRO HECTOR Attn: Accounting,[address] [facility], [place], [address], [facility] 01/29/2022 15:38:42 Imaging Results None recorded. Procedure Notes None recorded. Medical Equipment None Reported. Allergies No known drug allergies Medications Name Sig Start Date Stop Date Status Note LastModified by Organization Details LastModified Time multivitami n tablet Take 1 tablet every day by oral route. 2017 active Not Available Not Available Not Avai lable cyclobenzap rine 10 mg tablet 09/21 completed Not Available Not Available Not Available amoxicillin 500 mg capsule TAKE ONE CAPSULE BY MOUTH EVERY 8 HOURS FOR 10 DAYS with a meal 05/15 completed Not Available Not Available Not Available methocarbam ol 500 mg tablet Take 2 tablets 4 times a day by oral route as needed for 5 days. 01/24 completed Not Available Not Available Not Available metformin 500 mg tablet Take 1 tablet twice a day by oral route. 02/19 completed Not Available Not Available Not Available atorvastati n 80 mg tablet Take 1 tablet every day by oral route. 01/14 completed Not Available Not Available Not Available prednisone 10 mg tablet 3 tabs for 3 days, 2 tabs for 3 days, 1 tab for 3 days, 1/2 tab for 3 days 12/31 completed Not Available Not Available Not Available atorvastati n 20 mg tablet Take 1 tablet every day by oral route at bedtime for 30 days. 12/15 completed Not Available Not Available Not Available cetirizine 10 mg tablet TAKE ONE TABLET BY MOUTH EVERY MORNING FOR ALLERGIES 06/08 completed Not Available Not Available Not Available Tab-A-Avtar tablet 01/24 completed Not Available Not Available Not Available azithromyci n 250 mg tablet TAKE 2 TABLETS BY MOUTH ON DAY 1, THEN TAKE 1 TABLET DAILY ON DAYS 2-5 05/25 completed Not Available Not Available Not Available ibuprofen 800 mg tablet Take 1 tablet 3 times a day by oral route as needed, for with food for pain. active Not Available Not Available No t Available fluconazole 150 mg tablet Take 1 tablet every week by oral route. 01/24 completed Not Available Not Available Not Available hydrocodone 5 mg-acetamin ophen 325 mg tablet TAKE ONE TABLET BY MOUTH EVERY 6 HOURS NEEDED pain (moderate 4-6 ON scale) 06/08 completed Not Available Not Available Not Available meloxicam 15 mg tablet TAKE ONE TABLET BY MOUTH EVERY MORNING FOR PAIN 09/27 completed Not Available Not Available Not Available clobetasol 0.05 % topical cream APPLY A THIN LAYER TO THE AFFECTED AREA(S) BY TOPICAL ROUTE 2 TIMES PER DAY active Not Available Not Available No t Available permethrin 5 % topical cream APPLY (THOROUGH LY MASSAGE INTO SKIN FROM HEAD TO SOLES OF FEET) BY TOPICAL ROUTE ONCE LEAVE ON FOR 8-14 HR, THEN REMOVE BY THOROUGH WASHING 02/19 completed Not Available Not Available Not Available Terazol 3 0.8 % vaginal cream Insert 1 applicato rful every day by vaginal route for 3 days. 12/31 completed Not Available Not Available Not Available sulfamethox azole 800 mg-trimetho prim 160 mg tablet Take 1 tablet every 12 hours by oral route as directed for 5 days. 09/06 completed Not Available Not Available Not Available peg-electro lyte solution 420 gram oral solution 08/29 completed Not Available Not Available Not Available triamcinolo ne acetonide 0.1 % topical cream APPLY A THIN LAYER TO THE AFFECTED AREA(S) BY TOPICAL ROUTE 2 TIMES PER DAY 04/03 completed Not Available Not Available Not Available simvastatin 40 mg tablet Take 1 tablet every day by oral route in the evening. 12/09 completed Not Available Not Available Not Available levothyroxi ne 25 mcg tablet Take 1 tablet every day by oral route. 2024 active Not Available Not Available Not Avai lable meloxicam 7.5 mg tablet TAKE ONE TABLET BY MOUTH EVERY DAY 06/08 completed Not Available Not Available Not Available terbinafine HCl 250 mg tablet Take 1 tablet every day by oral route. 05/07 completed Not Available Not Available Not Available benzonatate 100 mg capsule TAKE ONE CAPSULE BY MOUTH THREE TIMES DAILY NEEDED FOR 7 DAYS 06/08 completed Not Available Not Available Not Available simvastatin 20 mg tablet Take 1 tablet every day by oral route. 01/24 completed Not Available Not Available Not Available clotrimazol e-betametha sone 1 %-0.05 % topical cream APPLY TO THE AFFECTED AND SURROUNDI NG AREAS OF SKIN BY TOPICAL ROUTE 2 TIMES PER DAY IN THE MORNING AND EVENING FOR 2 WEEKS 12/31 completed Not Available Not Available Not Available promethazin e 25 mg tablet 08/29 completed Not Available Not Available Not Available Albenza 200 mg tablet Take 2 tablets twice a day by oral route for 7 days. 01/24 completed Not Available Not Available Not Available omeprazole 20 mg capsule,del ayed release TAKE ONE CAPSULE BY MOUTH EVERY DAY FOR 10 DAYS 03/27 completed Not Available Not Available Not Available ergocalcife rol (vitamin D2) 1,250 mcg (50,000 unit) capsule TAKE ONE CAPSULE BY MOUTH ONCE a WEEK 06/08 completed Not Available Not Available Not Available clobetasol 0.05 % topical ointment 08/29 completed Not Available Not Available Not Available ibuprofen 600 mg tablet 09/21 completed Not Available Not Available Not Available estradiol 0.01% (0.1 mg/gram) vaginal cream Insert 1 g 3 times a week by vaginal route as directed for 30 days. 01/29 completed Not Available Not Available Not Available methylpredn isolone 4 mg tablets in a dose pack Use as directed on package 06/08 completed Not Available Not Available Not Available ketoconazol e 2 % topical cream APPLY TO THE AFFECTED AREA(S) BY TOPICAL ROUTE ONCE DAILY FOR 2 WEEKS 01/24 completed Not Available Not Available Not Available fluticasone propionate 50 mcg/actuati on nasal spray,suspe nsion SPRAY ONE PUFF IN EACH NOSTRIL EVERY DAY FOR ALLERGIES 06/08 completed Not Available Not Available Not Available clotrimazol e 1 % topical cream APPLY TO THE AFFECTED AND SURROUNDI NG AREAS OF SKIN BY TOPICAL ROUTE 2 TIMES PER DAY IN THE MORNING AND EVENING 01/24 completed Not Available Not Available Not Available naproxen 500 mg tablet 01/24 completed Not Available Not Available Not Available amoxicillin 875 mg-potassiu m clavulanate 125 mg tablet Take 1 tablet every 12 hours by oral route with meals for 7 days. 09/12 completed Not Available Not Available Not Available amoxicillin 500 mg-potassiu m clavulanate 125 mg tablet TAKE ONE TABLET BY MOUTH TWICE DAILY EVERY MORNING & EVENING. drink with large GLASS of water. active Not Available Not Available No t Available Premarin 0.625 mg/gram vaginal cream Insert 1 g twice a week by vaginal route. 12/31 completed Not Available Not Available Not Available rosuvastati n 10 mg tablet TAKE ONE TABLET BY MOUTH AT BEDTIME 06/08 completed Not Available Not Available Not Available nitrofurant oin monohydrate /macrocryst als 100 mg capsule TAKE ONE CAPSULE BY MOUTH TWICE DAILY EVERY MORNING & EVENING FOR INFECTION active Not Available Not Available No t Available calcium 600 mg (as carbonate)- vitamin D3 10 mcg (400 unit) tablet 01/24 completed Not Available Not Available Not Available Pylera 140 mg-125 mg-125 mg capsule TAKE THREE CAPSULES BY MOUTH FOUR TIMES DAILY FOR 10 DAYS 03/27 completed Not Available Not Available Not Available loratadine 10 mg capsule Take 1 capsule every day by oral route. 04/16 completed OTC Not Available Not Available Not Available Metamucil Sugar-Free (aspartame) 3.4 gram/5.8 gram oral powder Take 3.4 g every day by oral route as directed for 30 days. 04/03 completed Not Available Not Available Not Available calcium 600 mg (as carbonate)- vitamin D3 20 mcg (800 unit) tablet Take 1 tablet twice a day by oral route. 01/24 completed Not Available Not Available Not Available Vitals Date Recorded Body height Body mass index (BMI) Body weight Heart rate Oxygen saturation Oxygen saturation in Arterial blood by Pulse oximetry Systolic blood pressure Diastolic blood pressure Provider Name and Address Organization Details Last Updated DateTime 5 157.48 cm 31.8 kg/m2 13884.3 5 g 67 /min 97 % 97 % 124 mm[Hg] 66 mm[Hg] Laura Denson [place] - [facility] 5 16:08:40 Date Recorded Body height Body mass index (BMI) Body weight Oxygen saturation Oxygen saturation in Arterial blood by Pulse oximetry Heart rate Systolic blood pressure Diastolic blood pressure Provider Name and Address Organization Details Last Updated DateTime 5 157.48 cm 31.8 kg/m2 49563.3 5 g 96 % 96 % 74 /min 120 mm[Hg] 70 mm[Hg] Ivelisse Ruelas [place] - [facility] 5 16:02:44 Date Recorded Body height Body mass index (BMI) Body weight Heart rate Oxygen saturation Oxygen saturation in Arterial blood by Pulse oximetry Systolic blood pressure Diastolic blood pressure Provider Name and Address Organization Details Last Updated DateTime 4 157.48 cm 31.7 kg/m2 47626.2 8 g 70 /min 97 % 97 % 122 mm[Hg] 74 mm[Hg] Anuradha Orta [place] - [facility] 4 15:57:27 Date Recorded Body height Body mass index (BMI) Body weight Heart rate Oxygen saturation Oxygen saturation in Arterial blood by Pulse oximetry Systolic blood pressure Diastolic blood pressure Provider Name and Address Organization Details Last Updated DateTime 4 157.48 cm 31.2 kg/m2 43606.5 8 g 66 /min 98 % 98 % 124 mm[Hg] 74 mm[Hg] VIDA Lu [place] - [facility] 4 15:54:48 Date Recorded Body height Body mass index (BMI) Body weight Heart rate Oxygen saturation Oxygen saturation in Arterial blood by Pulse oximetry Systolic blood pressure Diastolic blood pressure Provider Name and Address Organization Details Last Updated DateTime 4 157.48 cm 31.2 kg/m2 86275.1 4 g 75 /min 98 % 98 % 122 mm[Hg] 68 mm[Hg] Laura Denson [place] - [facility] 4 16:35:06 Social History Question Answer Notes LastModified by Organizat ion Details LastModified Time Tobacco Smoking Status Current Every Day Smoker Lucinda De Los Santos PA-C Attn: Accounting,[address] [place], [address], [facility] 03/27/2016 16:13:56 Do You Have An Advance Directive? No Information not available 10/09/2014 Is Blood Transfusion Acceptable In An Emergency? Yes Information not available 10/09/2014 What Is Your Level Of Caffeine Consumption? Moderate Information not available 10/09/2014 How Much Tobacco Do You Chew? None Information not available 10/09/2014 In The 14 Days Before Symptom Onset, Have You Had Close Contact With A Laboratory-confir med COVID-19 While That Case Was Ill? No Information not available 09/12/2021 In The 14 Days Before Symptom Onset, Have You Had Close Contact With A Person Who Is Under Investigation For COVID-19 While That Person Was Ill? No Information not available 09/12/2021 Have You Been To An Area Known To Be High Risk For COVID-19? No Information not available 09/12/2021 What Type Of Diet Are You Following? REGULAR Information not available 10/09/2014 Which Illicit Or Recreational Drugs Have You Used? None Information not available 07/28/2019 Education 12 Information no t available 10/09/2014 Live Alone Or With Others? Alone Information not available 10/09/2014 Do You Have A High School Diploma Or Higher Education? Yes Information not available 09/12/2021 Do You Sometimes Have To Miss Your Medical Appointments Due To Difficult Getting Transportation? No Information not available 09/12/2021 Do You Feel Unfairly Treated Due To Things Such As Race, Age, Gender, Disability Or Some Other Reason? No Information not available 09/12/2021 Do You Feel Physically And Emotionally Safe While Living At Home? Yes Information not available 09/12/2021 Do You Feel Physically And Emotionally Safe In Your Neighborhood Or Other Public Places? Yes Information not available 09/12/2021 What Was The Date Of Your Most Recent Tobacco Screening? 08/03/2024 Information not available 08/03/2024 How Many Children Do You Have? 5 Information not available 10/09/2014 Performs Monthly Self-breast Exam? Yes Information no t available 10/09/2014 Do You Use Protection During Sex? No Information not available 10/09/2014 What Is Your Relationship Status? Information not available 10/09/2014 Seat Belts Used Routinely Yes Information not available 10/09/2014 Are You Sexually Active? No Information not available 10/09/2014 Do You Have Smoke And Carbon Monoxide Detectors In Your Home? Yes Information not available 09/12/2021 Are You Passively Exposed To Smoke? Yes Information no t available 09/12/2021 How Much Tobacco Do You Smoke? 0.25 PPD 2 Per Day [email or web address] Information not available 05/25/2024 General Stress Level High Information not available 10/09/2014 Do You Use Sunscreen Routinely? Yes Information not available 10/09/2014 Has Tobacco Cessation Counseling Been Provided? Yes Information not available 01/24/2019 On What Date Was Tobacco Cessation Counseling Provided? 08/03/2024 Information not available 08/03/2024 How Many Years Have You Smoked Tobacco? 30 Information not available 10/09/2014 Sex: Female Functional Status Question Answer Note LastModified by Organizat ion Details LastModified Time Do you use any illicit or recreational drugs? No Information not available 01/29/2022 Do you or have you ever used any other forms of tobacco or nicotine? No Information not available 10/28/2023 What is your level of alcohol consumption? None Information not available 10/09/2014 Do you or have you ever used smokeless tobacco? Never used smokeless tobacco Information not available 07/28/2019 Are you currently employed? 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 Never used electronic cigarettes Information not available 07/28/2019 What is your exercise level? Occasional Information not available 10/09/2014 Mental Status None recorded. Family History Relationship Description Onset Age of this Age Resolved Age Notes LastModified by Organization Details LastModified Time Father Malignant neoplasm of bone 60 diabet ic [email or web address] Not available 04/13/2016 10:54:41 Mother Diabetes mellitus [email or web address] Not available 04/13 10:54:41 Medical History Condition Response Other Y Breast Cancer N Lung Disease N Depression N Breast Problem N Anesthesia Complications N Headaches/Migraines N Anxiety Disorder N Arthritis Y Infertility N Polyps N Acid Reflux (GERD) N Cancer N Stroke N Endometriosis N High Cholesterol Y Fibromyalgia N Kidney Disease N Heart Problems N Kidney or Bladder Problems N Thyroid Problems N GI Problems N Acne N Eating Disorder N Anemia N Ovarian Cancer N Diabetes Y Blood Transfusions N Abuse/Domestic Violence N Asthma N Hepatitis N Heart Disease N Pre-Eclampsia N Hypertension N Osteoporosis N Gynecological History Statement/Question Response Abnormal Pap Y STIs/STDs Y HPV Vaccine N Most Recent Mammogram 05/25/2018 Age at Menarche 10 Current Control Method Hysterectom y Age at First Child 15 Sexually Active? N Menses Monthly N Date of Last Pap Smear 04/09/2016 Sexual Problems? N Desired Control Method None Obstetrics History GPAL:G 5 P 5 0 0 5 Type Value Multiple Births 0 Full Term 5 Induced 0 Spontaneous 0 Premature 0 Living 5 Ectopics 0 Total 5 Immunizations Vaccine Type Date Status Note Provider Nicholas nicole and Address Organization Details Recorded Time Influenza, split virus, quadrivalent, preservative 6 completed Not Available [facility] 07/23/2019 02:32:31 COVID-19, mRNA, LNP-S, PF, 30 mcg/0.3 mL dose 1 completed Marizol Archer MA null, [place] - [facility] 08/03/2024 16:49:44 COVID-19, mRNA, LNP-S, PF, 30 mcg/0.3 mL dose 1 completed Marizol Archer MA null, [place] - [facility] 08/03/2024 16:49:44 Tdap 7 completed Not Available [facility] 07/23/2019 02:33:51 Influenza, split virus, quadrivalent, preservative 0 completed Angi Mendes MA null, [place] - [facility] 07/28/2019 17:53:00 Past Encounters Encounter ID Performer Location Encounter Start Date Encounter Closed Date Diagnosis/Indication Diagnosis SNOMED-CT Code Diagnosis ICD10 Code Diagnosis Note [id number] MD Katia Bernstein (CHIEF OF [employer]ELD [employer]PERATIONS) [address] [place] [address] [id number] 10/09/2014 15:07:03 10/09/2014 17:08:41 Menopausal syndrome 677253090 Screening for malignant neoplasm of breast 778720578 [id number] MD Katia Stoner (Adult Med) [address] [place] [address] [id number] 09/07/2015 09:50:04 09/07/2015 11:22:21 Obesity 614502564 E66.9 Screening for malignant neoplasm of colon 860444767 Z12.11 Patient will fill out [facility] applicatio n and then will send her to Dr. 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 Her two complaints today consist of two small rashes on her right hand and varicositi es on her right lower leg. [id number] MD Katia Stoner (Adult Med) [address] [place] [address] [id number] 0 12/07/2015 09:38:16 12/07/2015 10:12:26 Hyperlipidemia 41668752 E78.5 Will recheck today - if WNL RTC 6 months Sciatica 05050644 M54.31 [id number] MD Katia Stoner (Adult Med) [address] [place] [address] [id number] 03/18/2016 15:46:27 03/18/2016 16:24:17 Screening for malignant neoplasm of breast 996541371 Z12.31 [id number] MD Katia Stoner (Adult Med) [address] [place] [address] [id number] 0 03/27/2016 14:34:11 03/27/2016 16:16:19 Tobacco dependence syndrome 90466815 F17.290 Advised to quit Atopic dermatitis 148547 01 L20.9 Requesting refill on medication because of chemicals at work Hyperlipidemia 86326912 E78.5 Will recheck today Menopausal syndrome 1237 88284 N95.9 Active or passive immunization 315448495 Z23 [id number] MD Katia Bernstein ([employer]ATIONS) [address] [place] [address] [id number] 0 04/09/2016 15:37:27 04/13/2016 10:58:49 Candidiasis of vagina 94090242 B37.3 Menopausal syndrome 1237 85321 N95.9 Screening for malignant neoplasm of breast 181414323 Z12.31 [id number] MD Katia Stoner (Adult Med) [address] [place] [address] [id number] 12/31/2016 15:28:21 12/31/2016 18:04:33 Active or passive immunization 362531340 Z23 Screening for malignant neoplasm of colon 876204054 Z12.11 Dermatophytosis 26945808 B35.9 Patient given informatio n handoutCon tact clinic if no improvemen t with rash Blood gluc ose outside reference range 519431313 R73.09 a1c: 6.0Will check annual labs Screening for disorder 988903442 Z13.9 [id number] MD Katia Bernstein ([employer]) [address] [place] [address] [id number] 04/16/2017 15:50:19 04/16/2017 17:54:57 Screening mammography 87583383 Z12.31 [id number] Rocio Castro er, MD [facility] (Adult Med) [address] [place] [address] [id number] 0 05/07/2017 15:45:44 05/07/2017 17:20:21 Dermal mycosis 56364653 B36.9 No improvemen t with cream or terbinafin e - will try fluconazol e with topical If no improvemen t, advised to take pictures of rash and have Karina show them to me and we will see what we can doPresenta tion is classic for ringworm - will continue to treat for that - if no improvemen t, will try to consult derm [id number] MD Katia Bernstein (CH[employer]ATIONS) [address] [place] [address] [id number] 0 05/13/2018 15:02:25 05/13/2018 17:17:39 Screening mammography 07640391 Z12.31 Menopausal syndrome 1237 94023 N95.9 Dermatophytosis 46340318 B35.9 hands bilateral [id number] PEDRO [facility]ECTOR (Adult Med) [address] [place] [address] [id number] 01/24/2019 11:28:16 01/25/2019 10:50:14 Sciatica 70819285 M54.32 1 [facility] XRAY and CT scan of lumbar spine both normalLess likely due to disc herniation , patient to do supportive care at home, if symptoms continue or get worse will order MRI of lumbar spine Low back strain 95960920 1 S39.012D Acute back pain and left leg numbness x [address] in the ER both normal, will try and get records to review myselfLike ly lumbar back strain, no history of trauma or acute injury to the back, more due to overuseLes s likely, herniated disc. Patient w/o red flag symptoms currently, would like to see patient do supportive care at home for 1-3 weeks and if symptoms continue, will consider an MRI for additional imaging.- Modify your activity for 3-6 weeks. Avoid heavy lifting. Use positions that promote comfort. Gradually resume activities as tolerated, which include gradually increasing low-stress aerobic exercise. Ice for 20-30 minutes several times a day for the first 48 hours after pain started. Apply heat for 20-30 minutes several times a day 48 hours after the pain started. Healing can take up to 6 weeks. Strengthen ing exercises once back pain is gone.- Provided patient with care instructio ns for home and back stretching exercises [id number] MD Katia Bernstein (CHIEF [employer]ELD OPERATIONS) [address] [place] [address] [id number] 07/28/2019 15:45:50 07/29/2019 11:10:34 Screening mammography 27156947 Z12.31 Atrophic vaginitis 51732 000 N95.2 Menopausal syndrome 1237 76186 N95.9 Administra tion of influenza vaccine 72550194 Z23 Atopic dermatitis 697564 01 L20.9 [id number] PEDRO HECTOR (Adult Med) [address] [place] [address] [id number] 09/22/2019 14:41:00 09/23/2019 11:26:54 Blood glucose outside reference range 647143026 R73.09 HgbA1c: 6.0 - Will d/c Metformin at this time as pt had been having side effects. Will do lifestyle modificati ons instead. - Patient advised to try lifestyle changes at home for the next 3-6 months including cutting out sugary foods/carb ohydrates/ sugary drinks, increase exercise, and weight loss. Will continue to monitor, if number continues to rise, patient will be started on oral antiglycem ic agents. - To recheck HgbA1c at f/u in 6 months. Hyperlipidemia 87165248 E78.5 Total cholestero l 252, triglyceri anita 351. - T/c atorvastat in 20mg QD. Advised pt to take this medication at night, in case her symptoms of headaches/ lower back pain were due to this medicine. - If pt has these symptoms again, she is to call our office so she can try a new medication . Pt instructed on the importance of these medication s due to her high cholestero l and triglyceri de levels. Pt understand ing. Screening for malignant neoplasm of colon 141535501 Z12.11 Pt due for colonoscop y.- Referral in place. Streptococ pia sore throat 86999170 J02.0 Positive for strep in ED 09/20/19. Started amoxicilli n 09/21/19. - Pt advised to continue this abx until completed. Pt understand ing of and agreeable with plan. Continue supportive care at home; care instructio ns provided. Bleeding hemorrhoids 515 49113 K64.9 Rectal bleeding with constipati on x 4 months - Advised pt to drink plenty of water throughout the day. - Will start metamucil fiber supplement to be taken QD to help with pt's constipati on. - Warm sitz baths after bowel movements recommende d. - Pt to f/u with GI for colonoscop y; pt to also discuss this issue at her GI appointmen t. - Offered tylenol/ib uprofen for pt's pain at home; pt has at home. Advised pt to take this as needed for hemorrhoid pain when it occurs. [id number] PEDRO HECTOR (Adult Med) [address] [place] [address] [id number] 0 08/23/2020 14:48:26 08/24/2020 10:11:09 Dysuria 77061999 R30.9 [id number] PEDRO HECTOR (Adult Med) [address] [place] [address] [id number] 08/29/2020 08:17:15 08/29/2020 15:31:55 [id number] PEDRO HECTOR (Adult Med) [address] [place] [address] [id number] 09/06/2020 14:43:56 09/07/2020 19:46:05 Adult health examination 597606987 Z00.00 Complains of metallic taste in mouthNo history of GERD or anemia- Repeat CBC, CMP, HbA1c, and lipid panel- Added on ferritin, iron and TIBC to assess for iron deficiency anemia- discussed proper oral hygiene and routine dental care Dysuria 48623241 R30.9 Complains of dysuria x 2 monthsTrea nicki for UTI with Macrobid, but was later switched to Bactrim as urine culture on 08/23/2020 was positive for klebsiella Has since completed the course of Bactrim with some improvemen t of dysuria, but has not completely resolvedAl so reports occasional urinary leakage with increased intra-abdo altaf pressure, though this is not new for her History of hysterecto my - No vaginal complaints todayOn PE: Milky white discharge in vaginal canal. Cervix is absent. No adnexal tenderness . Mild cystocele noted with Valsalva.- Urine dipstick with trace leukocytes and trace blood - Ordered repeat urine culture- Sent nuab for further evaluation of vaginal discharge [id number] PEDRO HECTOR (Adult Med) [address] [place] [address] 11/20/2020 14:56:30 11/21/2020 10:45:33 Pruritic rash 76606355 L28.2 Pt w/ pruritic rash on ALBERT triceps and lower right breast x 9 days, improving somewhat. Rash began on her lower right breast and then spread to her triceps area ALBERT. First noticed on November 11 the day before she traveled home from [facility] where she visited [employer], [place]. The itching is worse at night. Coconut oil with mild improvemen t. Pt reports her daughter has a similar rash on her arms and face. Pt reports no history of similar rash. Denies hot tub use, new soaps, detergents . On PE: Numerous scattered papules with mild erythemato us base 1-2 mm each over ALBERT triceps, some in linear pattern. Similar papules over right lower breast, some larger in size, less linear pattern. DDX: scabies vs hot tub foliculiti s vs contact dermatitis - Start treatment with permethrin topical cream as directed to cover for scabies - Wash all bedding and recent clothes tonight, inform daughter to do the same - May use OTC benadryl tablets, neosporin cream or calamine lotion and warm washcloths for pruritis - Return to clinic if symptoms do not improve 5-7 days [id number] PEDRO HECTOR (Adult Med) [address] [place] [address] 02/19/2021 10:52:36 02/22/2021 11:23:56 Digital mucous cyst 372325133 M71.349 On right index finger patient complains of having a painful, fluid filled bullae for the past 2 weeks. She reports using a needle and popping the area with fluid draining out. She applied compound W to the area with minimal relief. She has full range of motion. There is another small one of left 2nd digit at DIP.Admits to arthritis of her hands and fingers.-p atient denies trauma or burn to the area but does have underlying arthritis noted on various digits-Con sistent with a mucous cyst-Will obtain B/L hand XR today and advised patient to use arthritis medication -Educated patient on importance of not popping the cyst to prevent infection to the joint-If symptoms persist, will send to hand specialist Prediabetes 808520699 R7 3.03 Previous HgA1c was 6.1 and was start on metformin but did not tolerate the medication . Discontinu ed it after a month-Will recheck today. Patient wants kidney and liver function tested so will check a CMP.-Educa nicki patient on importance of healthy diet and increased activity-W ill have patient follow up in September of 2021 and if HgA1c is increased will consider medication at that time [id number] PEDRO HECTOR (Adult Med) [address] [place] [address] 04/03/2021 14:44:21 04/03/2021 23:01:40 Digital mucous cyst 978820552 M71.349 On right index finger patient complains of having a painful, fluid filled bullae for the past month She reports using a needle and popping the area with fluid draining out. She applied compound W to the area with minimal relief. She has full range of motion. There is another small one of left 2nd digit at DIP.She was taking the meloxicam which didn't seem to help and caused her headaches so she stopped taking. She is now taking naproxen at home with better reliefAdmi ts to arthritis of her hands and fingers.-p atient denies trauma or burn to the area but does have underlying arthritis noted on various digits-Con sistent with a mucous cyst- c/w medication PRN- ortho referral sent today Pain of bi lateral hands [id number] M79.641 Abnormal xray of hands, showed evidence concerning of RA- will check RA labs Osteopenia [id number] M85 .80 Abnormal xray of hands, showed evidence of periarticu lr osteopenia concerning of ALEXA labs came back negative- will order DEXA scan to look for osteopenia /osteoporo sis Atopic dermatitis [id number] 01 L20.9 Saw dermatolog y for atopic dermatitis on her hands years ago, using Clobetasol prn which helps greatly. Requesting refill Left lower quadrant pain [id number] R10.32 Complainin g of left lower quadrant pain x 1 weeks, the pain is intermitte nt and she ranks the pain a 7-8/10. She notes I think my ovary is inflamed. Denies fever, chills, nausea, vomiting, diarrhea, constipati on, hematochez ia, decreased appetite, vaginal discharge, or dysuria.la st pap smear: 2016Prior CT of abdomen in 2019: umbilical hernia and diverticul osis- discussed concern for possible divertiuli tis but patient no other concerning symptoms- patient wanted to start with US of pelvis because she thinks it is her ovary, will start with this. If symptoms continue or get worse, call me right away. [id number] PEDRO HECTOR (Adult Med) [address] [place] [phone] 05/23/2021 14:39:56 05/24/2021 13:41:45 Digital mucous cyst [id number] M71.349 On right index finger patient complains of having a painful, fluid filled bullae for the past month She reports using a needle and popping the area with fluid draining out. She applied compound W to the area with minimal relief. She has full range of motion. There is another small one of left 2nd digit at DIP.She was seen by ortho, and had resolution of the cyst temporaril y after steroid injection but reports that it recently returned. -Advised follow up with ortho when she has the time Left lower quadrant pain [id number] R10.32 Left lower abdominal pain has resolved since last visit. Patient reports that the Naproxen she was prescribed helped.Vag inal US showed hysterecto my and possible oophrectom y. - Consider further diverticul itis workup if pain returns. [id number] PEDRO HECTOR (Adult Med) [address] [place] [address] [phone] 0 08/08/2021 08:32:15 08/09/2021 09:05:50 Acute otitis media [id number] H66.90 She developed URI symptoms roughly 2-3 weeks ago including R ear pain, headaches, sinus pressure, nasal congestion , green/yell ow rhinorrhea , sore throat and cough. She tested negative for COVID. 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 Her last mammogram was Jul 2020. She denies a FHx of breast cancer and any current breast complaints .- mammogram referral given Allergic disposition 609 951104 T78.40XA Requesting refill on allergy medication today- refilled cetirizine today [id number] PEDRO HECTOR (Adult Med) [address] [place] [address] [phone] 01/29/2022 14:40:33 01/30/2022 14:15:05 Blood glucose outside reference range 581316899 R73.09 HgbA1c: 6.1 on 02/28/2021 . - Discontinu ed Metformin as pt had been having side effects. Will do lifestyle modificati ons instead. - Patient advised to try lifestyle changes at home for the next 3-6 months including cutting out sugary foods/carb ohydrates/ sugary drinks, increase exercise, and weight loss. Will continue to monitor, if number continues to rise, patient will be started on oral antiglycem ic agents.- Recheck HgbA1c Hyperlipidemia 78255477 E78.5 09/07/2020 : Total cholestero l 218, LDL 148, triglyceri anita 110- T/c atorvastat in 20mg QD. Advised pt to take this medication at night, in case her symptoms of headaches/ lower back pain were due to this medicine.- If pt has these symptoms again, she is to call our office so she can try a new medication . Pt instructed on the importance of these medication s due to her high cholestero l and triglyceri de levels. Pt understand ing. -Order repeat lipid panel. Adult [facility] examination [id number] Z00.00 - Repeat CBC, CMP, Vitamin D, iron, TIBC, and ferritin d/t interval since last measuremen t. Lower abdominal pain 545 15809 R10.30 Pt has been having lower abdominal pain, and the pain is constant. Pain present for 3 weeks. Pain is worse on right side. Pain is sharp. Pain has not gradually gotten worse, and the severity had remained consistent . Pt endorses that the pain is increased while lying down, but less w/ ambulation . Pt endorses she has not tried OTC remedies for pain. Pt endorses that she has low back pain as well. The low back pain is present on left and right side. Pt gets easily bloated. Pt endorses similar abdominal pain has occurred in past. Was told to avoid carb heavy foods in past. Continues to avoid carbohydra te rich foods. Endorses that she does get blurry vision at times. Endorses to have surgical h/o hysterecto my d/t reproducti ve cancer. Not certain if ovaries were removed. Had a colonoscop y around 2019. Pertinent negatives: Denies vaginal spotting. Denies shoulder pain. Denies headaches. Denies hematuria. Denies blood in stool or decreased caliber of stool. Denies recent difficulty passing stool or urine. TTP of RLQ and LLQ upon exam. Nontender over hip joint bilaterall y. -R/o H. pylori, UTI. Evaluate ovarian cancer w/ CA-125. Based on previous imaging, not certain at this time if ovaries are still present, or if they were removed w/ previous hysterecto my. Consider re-evaluat ion of previous CT scan for presence of ovaries.-U se heat and Tylenol for symptomati c tx at this time. [id number] PEDRO HECTOR (Adult Med) [address] [place] [address] 03/27/2022 14:37:18 03/28/2022 15:37:59 Vitamin D deficiency 88708030 E55.9 Started on vit. d supplement s at last visit, was taking 2 capsules weekly- plan to recheck today- decrease to taking 1 tablet weekly Hyperlipidemia 34232017 E78.5 02/2022: Total, tri and LDL all high. LDL >190Issues with simvastati n and atorvastat in in the pastAt last visit was switched to rosuvastat in since hydrophili c to decrease myalgia SEToday patient notes she is doing great on the rosuvastat in- c/w rosuvastat in Serum ferr itin above reference range 556968066 R77.8 Possibly due to H pylori infection- plan to recheck today since H pylori treatment has been completed Microscopic hematuria 19 1388245 R31.29 +3 blood cells per HPF on UA- plan to recheck today- if still positive, consider WWE and urology work-up Helicobact er pylori gastrointestinal tract infection 651129359 B96.81 Tested positive for H pylori at last visit, completed medication as prescribed and has seen a great improvemen t in her abdominal symptoms.- BUZZ order given to patient today Infection of tooth 00167 8007 K04.7 Since last visit, had a tooth removed from the upper jaw on the left side 1 month ago.She is concerned for an infection in the area where the tooth was, there is still a hole present in the mouth and never had a f/u appointmen t with dentist. She does not plan on returning because it was very expensive the first few visits.- new referral given today for future dental care Acute otitis media 68525 03 H66.90 After the extraction , she developed left ear pain, left cheek pain, and left eye pain. She is concerned for an infection in the area where the tooth was, there is still a hole present in the mouth and never had a f/u appointmen t with dentist.De nies vision changes, nasal congestion , fever, chills, nausea, vomiting, LAD.On PE: left TM bulging and erythemato us- start amoxicilli n- start daily allergy medication - if eye pain does not improve after treatment, see ophthamolo gy- if no improvemen t with abx, please f/u in the office [id number] PEDRO HECTOR (Adult Med) [address] [place] [phone] 05/15/2022 14:54:40 05/16/2022 12:30:17 Acute bronchitis 41141530 J20.9 Productive cough, sore throat, frontal headache x3 weeks, overall improving since onset. Multiple people around her are sick with similar sx, pts grandkids diagnosed with RSV 3 weeks ago. PE with erythemato us and edematous nasal mucosa and clear nasal drainage, erythemato us pharynx, lungs CTA.- Start Flonase, Medrol dose pack, benzonatat e.- Use sample of albuterol inhaler, advised to take PRN- Discussed that cough from acute bronchitis can last 4-6 weeks- Advised to call office if develops worsening cough, green/yell ow sputum production , SOB, CP, high fever- Advised adequate fluid intake and rest [id number] PEDRO HECTOR (Adult Med) [address] [place] [address] [phone] 06/08/2023 11:20:31 06/09/2023 13:53:43 Screening for malignant neoplasm of breast 764933125 Z12.39 Due for screening mammogram- Provided patient with mammogram order, she understand s she needs to call and schedule appointmen t Smoker 98536439 F17.200 Advised patient to quit smoking, discussed risks of continuing and benefits from quitting, patient to reach out for help when interested in quitting Pain of ri ght knee joint [id number] 24344 M25.561 Patient reports increased pain at the front of her knee for the past few months. Reports she had a fall on her R knee a couple years back but was never seen for follow-up. Denies imaging of her R knee Reports pain has been worsening with walking, squatting, going up and down stairs, and at the end of the day. Reports pain is worse with flexion and she feels aOn PE: Tenderness at inferior pole of kneecap and patella tendon. (+) crepitus to R knee joint.Like ly patellofem oral syndrome vs arthritis- Education provided regarding PFPS- c/w supportive care of naproxen, at-home strengthen ing exercises, and oral supplement ation- X-ray ordered Varicose v eins of lower extremity 67631700 I83.891 Previous hx of stab phlebectom y to RLE by Dr. Gee at [place] in 2019. Patient reports varicose veins have been more painful over the past few months and she has noticed more veins.On PE: small varicose veins present to the RLE- Will send referral for further management of varicose veins Blood gluc ose outside reference range 674261507 R73.09 HgbA1c: 5.9 ( 2), 6.1 ( 1)Has previously been on Metformin, but stopped due to side effects. Has continued with lifestyle modificati ons.- Patient advised to try lifestyle changes at home for the next 3-6 months including cutting out sugary foods/carb ohydrates/ sugary drinks, increase exercise, and weight loss. Will continue to monitor, if number continues to rise, patient will be started on oral anti-glyce mckenzie agents.- Recheck HgbA1c Obesity 012932867 E66.9 BMI 31.7Due for annual screening labs.- Advised decreased portion sizes, good food choices, limited eating out or fast food and eliminate soda and juice from diet. Advised physical activity daily and offered encouragem ent to continue with positive changes made so far. [id number] MD Katia López (Adult Med) [address] [place] [address] [phone] 0 10/28/2023 15:30:01 10/28/2023 16:38:03 Pain in left foot [id number] 32752 M79.672 Hyperlipidemia 17335047 E78.5 [id number] MD Katia López (Adult Med) [address] [place] [address] [phone] 12/16/2023 15:36:34 12/16/2023 16:44:47 Upper respiratory infection 28443075 J06.9 [id number] MD Katia López (Adult Med) [address] [place] [address] [phone] 0 05/25/2024 15:42:34 05/25/2024 17:03:16 Obesity 199836561 E66.9 Pain in ri ght lower limb 329862273 M79.604 Fatigue 35080494 R53.83 Chronic dermatitis 96772 007 L30.9 [id number] MD Katia López (Adult Med) [address] [place] [address] [phone] 0 06/22/2024 16:08:36 06/22/2024 17:29:08 Smoker 40661877 F17.200 Body mass index 30+ - obesity 251424801 Z68.31 Obesity 992907259 E66.9 Low back pain 017913859 M54.50 Subclinica l hypothyroidism 87134691 E02 [id number] MD Katia López (Adult Med) [address] [place] [address] [phone] 08/03/2024 15:08:30 08/03/2024 16:50:39 Smoker 26011164 F17.200 Body mass index 30+ - obesity 002680964 Z68.31 Obesity 710422195 E66.9 Hypothyroidism 97113105 E03.9 [id number] MD Katia Bustamante (Adult Med) [address] [place] [address] [phone] 09/27/2024 15:44:28 09/28/2024 13:00:38 Epidermoid cyst 563289755 L72.0 Reassured patient that the lesion present is a skin issue not a breast issue. Will treat with oral antibiotic . Advised patient to apply heat. If it has not resolved in next two weeks asked her to reach out to me. Screening for malignant neoplasm of breast 664884199 Z12.39 Order for screening mammogram. Asked her to wait to get this done until her skin lesion resolves so there is no confusion. Health Concerns Section Related Observation LastModified by Organization Detai ls LastModified Time None Recorded Concern Status LastModified by Organization Details LastModified Time None Recorded Advance Directives Directive N: Payers Encounter Date Sequence Insurance Name Policy Number Policy Salas Covered Member ID Salas Member ID Guarantor Name 12/16/2023 1 [facility] (MEDICAID HMO) [id number] Christa Mendoza [id number] Christa Mendoza 05/25/2024 1 [facility] (MEDICAID HMO) [id number] Christa Mendoza [id number] Christa Mendoza 06/22/2024 1 [facility] (MEDICAID HMO) [id number] Christa Mendoza [id number] Christa Mendoza 08/03/2024 1 [facility] (MEDICAID HMO) [id number] Christa Mendoza [id number] Christa Mendoza 09/27/2024 1 [facility] (MEDICAID HMO) [id number] Christa Mendoza [id number] Christa Mendoza Notes Date Note Type Note Provider Name and Address Organization Details Recorded Time 12/16/2023 text/html upper respirator y symptomatology with sinus drainage and a little bit of cough and at times she may have a little bit of discomfort in her chest when she coughs no exertional chest pain or shortness of breath. 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 At times she will feel a little bit tired as well does have some sinus drainage causes her throat to be sore Ajay Hankins MD Attn: Accounting[address] [facility], [place], [address], [facility] 05/28/2024 14:05:48 06/22/2024 text/html ann's the aerial photograph interpreter some pain in back down the legsdid not start her levothyroxine Marizol Archer MA [facility] [place] [facility] 06/23/2024 11:53:48 08/03/2024 text/html she says that sh e is feeling better back is doing better has a spot on her finger though that is low sore she saw orthopedics given meloxicam for mucous retention cyst Ajay Hankins MD Attn: Accounting, [address] [facility], [place], [address], [facility] 08/06/2024 21:02:20 09/27/2024 text/html here to indira dueñas, needs mammogram, bump on breast right breast, painful, has been there three weeks, changing color and size, nothing coming out of it, has had mammograms before, never had an abnormal mammogram, has had PAPs before but had a hysterectomy in 2003 and was told she does not have a cervix, not sure about ovaries, no vaginal discharge, had menopause after surgery, no symptoms now, Rosi Bush MD Attn: Accounting, [address] [facility], [place], [address], [facility] 09/27/2024 16:54:39 OBGyn Episode No OBEpisode recorded.
--- NOTE | 2024-12-07 06:54 | WPDHPUPDATE1 ---
History and Physical Update Update Date/Time: 12/07/24 06:54 Patient seen and examined in pre-operative holding area. No interval change in medical history or symptoms. Patient recalls previous discussion of benefits and alternatives to procedure. Continues to desire to proceed with left thumb ulnar collateral ligament repair/reconstruction . Reviewed procedure, post-op expectations and risks including but not limited to bleeding, infection, injury to tendon/nerve/vessel, decreased hand function, stiffness, RSD, no change or worsening of symptoms, failure of repair. I discussed the possible use of assistants and their participation in the case. Patient stated understanding and signed the consent form wishing to proceed.
--- NOTE | 2024-12-07 06:55 | W.PM.PROC2 ---
Procedure Note - Detailed Date of Procedure 12/07/24 Pre-op Diagnosis left thumb sprain of mpj Post-op Diagnosis Same Procedure Performed left thumb UCL repair Surgeon Torsten Gomes MD Puttying And Calking Supervisor cherelle lopez pa-c Anesthesia MAC Description of Procedure INFORMED CONSENT: The patient was seen and examined and marked in the pre-op area.? The patient signed the consent form. PROCEDURE IN DETAIL:The patient taken back to OR on the stretcher in supine position. Time out performed with anesthesia, surgeon and staff agreeing on patient's name site and surgery to be performed SCDs were placed on the lower extremities and inflated. A tourniquet was placed on {left} upper extremity and antibiotics given IV After anesthesia administered sedation I injected {6}cc 1%lido i and 0.5% marcaine plain for digital block in the palm The?{left upper extremity}?was prepped and draped in sterile fashion the??{left upper extremity} was? exsanguinated with Esmarch bandage and tourniquet inflated to 250mmHg I proceeded with making a curvinlienar incison on the ulnar side of lef tthumb mpjoint through skin and dermis with 15 blade scalpel. Littler scissors were used to spread down through subq to adductor aponeurosis. a branch of the dorsal radial sensory nerve was identified and protected throughout the procedure and retracted dorsally. I made an incision in the adductor and reflected it exposeing an attensuated sjoint capsule and residual collateral ligament that was loose without clear attachment on the proximal phalanx. I proceeded with using 15 blade and freer to create space for planned suture anchor and internalbrace. I placed k-wires in the volar third of proximal phalanx and middle of head of metacarpal and verified placement on multiple views of fluoroscopy. 3-0 fiberwire was used for vertical mattress suture on the distal aspect of the capsulear ligamentous mass. I overdrilled the k-wire and then while holding the joint in reduction I placed the distal swivel lock anchor and internal brace securing the ligamentous mass to the proximal phalanx. the residual 3-0 fiberwire was used to further oversew and imrbicate the ligmanet distally. Next, I drilled over proximal kw-allison and again, while holding joint in reduction secured the internal brace with anchor. The internal brace was also used to further oversew and tighten ligmentous complex more. Mini c-arm veriied drill holes and suture anchor placement on multiple views as well. There was no impingement on flexion/extension and signfiicant improvement in resistance to radial stress without subluxation of the joint. I irrigated with normal saline. I repaired the adductor with 5-0 prolene. 4-0 chromic was used for skin. A dressing of xeroform, 4x4, jenifer, and a thumb spica splint was applied for patient safety, security, and comfort and secured with an juliana bandage after the tourniquet was let down noting the hand was warm and well perfused. The patient was then awaken from anesthesia and transferred to the recovery room in stable condition.? Complications - none EBL- 0cc Disposition - home in stable condition Cherelle Lopez PA-C was essential for positioning, retraction, closure and dressing placement [facility] [place] Surgery - Charge Forward: Surgery Billing ([id number] [id number] for Cherelle)
[2024-12-07] MEDS: LACTATED RINGERS 1,000 ML 30 ML IV CONT (11:45)
--- NOTE | 2024-12-07 12:31 | P.PNAN_ITS ---
Anes - Initial Pre Proc Eval Procedure: Operation Date: 12/07/24 13:15 Proposed Procedures p Left Thumb Ulnar Collateral Ligament Repair Possible Reconstruction - Torsten Gomes MD Date/Time: 12/07/24 12:31 Surgeon: Torsten Gomes MD Pre Op Diagnosis: left thumb sprain of mpj Patient Data Age: 59 Gender: F Height: 1.56 m Weight: 75.4 kg Last Vital Signs Temp 37.4 C 12/07/24 11:12 Pulse 69 12/07/24 11:12 Resp 16 12/07/24 11:12 BP 109/67 12/07/24 11:12 Pulse Ox 100 12/07/24 11:12 O2 Del Method Room Air 12/07/24 11:12 Allergies Allergy/AdvReac Type Severity Reaction Status Date / Time No Known Allergies Allergy Unverified 12/07/24 11:48 Home Medications ?Medication ?Instructions ?Recorded ?Confirmed ?Type No Home Medications 12/01/24 12/01/24 History Patient hx anesthesia problems: none Family hx anesthesia problems: none Results Review: All pre-operative results and documents have been reviewed as part of the pre- operative evaluation. [facility] Social History Social History Smoking packs per day: 0.1 Smoking cigarettes per day: 2.0 Years smoked: 20 Smoking pack-years: 2.00 Smoking status: Never smoker Tobacco type: cigarettes Additional smoking assessment comments: SMOKING 2 CIG/DAY CURRENTLY Alcohol intake: current Living arrangements: with family Additional living arrangements comments: DAUGHTER AND GRANDCHILDREN Spiritual care concerns: No Anes - Eval Final PreProcedure Day of Procedure 12/07/24 12:31 Patient weight: obese Heart: regular rate and rhythm Lungs: clear to auscultation Airway: Mallampati scale class II Neurological: alert and oriented Last oral intake: >/= 8 hours ASA classification: II Emergent: no Anesthetic plan: proceed Anesthesia type and monitoring: general LMA and standard monitoring Results Review: All pre-operative results and documents have been reviewed as part of the pre- operative evaluation. Informed Consent: The patient's anesthetic plan and its attendant risks and benefits were discu ssed with the patient/family/POA. Questions were solicited and answers provided to the satisfaction of the patient/family/POA.
--- NOTE | 2024-12-07 12:41 | P.PNAN_ITS ---
Anes - Eval Final PreProcedure Day of Procedure 12/07/24 12:41 Patient weight: obese Heart: regular rate and rhythm Lungs: clear to auscultation Airway: Mallampati scale class II Neurological: alert and oriented Last oral intake: >/= 8 hours ASA classification: II Emergent: no Anesthetic plan: proceed Anesthesia type and monitoring: general LMA and standard monitoring Results Review: All pre-operative results and documents have been reviewed as part of the pre- operative evaluation. Informed Consent: The patient's anesthetic plan and its attendant risks and benefits were discussed with the patient/family/POA. Questions were solicited and answers provided to the satisfaction of the patient/family/POA.
[2024-12-07] MEDS: LIDOCAINE 1% LOCAL INJ 10 ML VIAL INFILTRATE (12:46)
[2024-12-07] MEDS: ceFAZolin 2 GM/D5W 50 ML 2 GM/50 ML BAG IVPB (12:46)
[2024-12-07] MEDS: BUPivacaine HCL 0.5% PF 30 ML VIAL 10 ML INFILTRATE (12:46)
== END 2024-12-07 15:14 | disposition home or self-care (01) ==
PROVIDERS: PCP Internal Medicine; Visit Provider Plastic Surgery
PROC: (CPT 26540; principal; 2024-12-07 13:15)
DX: S63.642A Sprain of metacarpophalangeal joint of left thumb, initial encounter (principal); F17.210 Nicotine dependence, cigarettes, uncomplicated; E66.9 Obesity, unspecified; Z68.30 Body mass index [BMI] 30.0-30.9, adult; W19.XXXA Unspecified fall, initial encounter
CPT/HCPCS: 26540; 99199; C1713; J0690; J1100; J2003; J2405; J2704; J3010; J7120

== ENCOUNTER 2025-01-24 16:09 | Outpatient (CLI) | payer OTHER, SELFPAY ==
--- NOTE | ~2025-01-24 | XR_ITS ---
EXAM/ PROCEDURE: XR finger 1st LT min 2V - 01/24/2025 16:20 CDT HISTORY: 59 years old Female with S63.642A - Sprain of metacarpophalangeal joint of left th... COMPARISON: None available TECHNIQUE: Three view(s) FINDINGS/ IMPRESSION: There are no fractures or dislocations.Joint space narrowing, subchondral sclerosis, subchondral cyst formation and osteophyte formation, compatible with mild osteoarthritis. Reviewed, dictated and finalized at location A.
--- OUTSIDE RECORDS SUMMARY | 2025-01-24 16:16 | XMS_ITS | Clinical Summary ---
Author Organization [facility] Address [address] [place] [address] Care Team Providers Care Wet Process Operator Name Role Phone Unavailable Primary Care Provider Unavailabl e Encounters Date Type Department Care Team Description 01/03/2025 1:54 PM CDT - 01/03/2025 11:59 PM CDT Hospital Encounter [facility] [place] [address] Leyla Mendoza PA Pratt, Robin M, OTR Discharge Disposition: Home or Self Care (Routine Discharge) 01/03/2025 Travel from Last 3 Months Social History Tobacco Use Types Packs/Day Years Used Date Smoking Tobacco: Never Assessed Comments Unknown Sex and Gender Information Value Date Recorded Sex Assigned at Female 12/12/2024 2:49 PM CDT Legal Sex Female 2:48 PM CDT Gender Identity Not on file Sexual Orientation Not on file Plan of Treatment Health Maintenance Due Date Last Done Comments Cervical Cancer Screening Pa p Smear (Age 30 to 64) Every 3 Years 1963 Colorectal Cancer Screening Colonoscopy (10 Years) 1963 Annual Physical 1966 Hepatitis C 1981 DTaP, Tdap and Td Vaccines ( 1 - Tdap) 1982 Cervical Cancer Screening Pa p with HPV Testing (Age 30 to 64) Every 5 Years 1993 Cervical Cancer Screening with HPV 1993 Mammogram Screening 2003 Pneumococcal Vaccine: 50+ Ye ars (1 of 1 - PCV) 2013 Zoster Vaccines (1 of 2) 2013 COVID-19 Vaccine ( - 2023-2 5 season) 2024 RSV Immunization or 60+ Years (1 - 1-dose 75+ series) 2038 Meningococcal B Vaccine Aged Out No l onger eligible based on patient's age to complete this topic Meningococcal Vaccine Aged Out No zia jessi eligible based on patient's age to complete this topic RSV Immunizations Under 20 Months Aged Out No longer eligible based on patient's age to complete this topic Insurance [employer]
--- OUTSIDE RECORDS SUMMARY | 2025-01-24 16:16 | XMS_ITS | Clinical Summary ---
Author Organization [facility] Address [address] [place] [address] Care Team Providers Care Ordnance Engineering Technician Name Role Phone Unavailable Primary Care Provider Unavailabl e Source Comments [facility],non-owned Affiliates and Associated Physician Practices is amultiple site organization consisting of ambulatory clinics and hospital sitesin [place], [place], [place] and [place]. This disclosure is being madepursuant to the Care Everywhere program and may not contain all information available regarding this patient. 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 Gender Identity Not on file Sexual Orientation [...] - COLON CA SCREENING 1963 MAMMOGRAM 1963 HIV SCREENING 1978 HEPATITIS C SCREENING 04/22/1981 DTAP/TDAP/TD VACCINES (1 - Tdap) 1982 PNEUMOCOCCAL VACCINE 50+ (1 of 2 - PCV) 1982 PAP SMEAR 1984 ZOSTER VACCINE (1 of 2) 2013 COVID-19 VACCINE ( - 2023-2 5 season) 2024 DEPRESSION SCREENING 07/06/2024 INFLUENZA VACCINE (#1) 2025 06/07/2019 Respiratory Syncytial Virus (RSV) Vaccine Pt: or [...] Subscriber Plan / Payer (Ef fective 2017-Present) Name:Tim Mendoza Relation to Subscriber:Self Name:TIM MENDOZA Payer ID:Not on file Group ID:Not on file Type:Medicaid [place] Address: [address]
== END 2025-01-24 16:10 | disposition home or self-care (01) ==
LOC: ANHIMG 16:14
PROVIDERS: PCP Internal Medicine; Visit Provider Physician Assistant Surgical
DX: S63.642A Sprain of metacarpophalangeal joint of left thumb, initial encounter (principal); X58.XXXA Exposure to other specified factors, initial encounter
CPT/HCPCS: 73140

== ENCOUNTER 2025-04-24 15:30 | Outpatient (RCR) | payer OTHER, SELFPAY ==
--- NOTE | 2025-03-27 15:59 | OTOPEVAL1 ---
Assessment and note entered by Leyla Kohler OT Evaluation Information Assessment Status Evaluation Diagnosis Sprain of metacarpophalangeal joint L thumb ICD-10 Condition Codes (OT) Joint stiffness of left hand M25.642,Pain in left hand M79.642,Generalized muscle weakness M62.81 Onset Aug 2024 Subjective Information Pt. fell from chair landed wrong. Pt. has surgery 12/07/24 for L UCL of thumb repair, initially in hard cast, issued Spica splint at [facility] for OP therapy, where she did not continue treatment, as hand therapist was not available at that time. Pt. reports she has no pain when wearing splint, but does with some movement and palpation when not wearing splint. 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 Reported Pain Level Pain Score 5: Self Report Assessment OT Clinical Summary Pt. is 59 year old F, who presents s/p L ulnar collateral ligament repair of 1st metacarpal , after complete tear of the ulnar collateral ligament resulting from fall onto hand. Pt. continues to wear L thumb Spica splint, demonstrating active ROM WNL when removed, but still reporting and displaying pain and weakness in joint and finger. Pt. will benefit from skilled occupational therapy to facilitate weening of Spica Splint and increasing functional strength with pain management. Plan of Care Interventions Therapeutic Exercise,Manual Therapy,Therapeutic Activities,Hot Pack/Cold Pack,Sensory Integrative Techniques,Self-Care/Home Management,Check Out for Orthotic/Prosthetic,Ultrasound,Paraffin OT Services Indicated Yes Treatment Frequency and 2 x /week for 8 visits Duration These treatments will address the objective and functional deficits as defined above. The patient will be advanced safely and appropriately in order for the patient to progress towards his/her prior level of function. Additional exercises will be introduced and as well as a comprehensive home exercise program upon discharge, if needed, ?to ensure carryover of functional gains achieved in the clinic. This treatment plan has been reviewed and agreement upon by the patient.
--- NOTE | 2025-03-27 15:59 | OPREHPOC ---
Outpatient Therapy Plan of Care This is a Multidisciplinary Plan of Care that may contain components documented by all disciplines (PT, OT, and ST.) OT Problem 1 OT Problem #1 Knowledge Deficit OT Goal 1 Goal / Goal Update Pt. will demonstrate independence in HEP Pt. will demonstrate independence in use of appropriate therapeutic modalities and manual therapies for home program Target Visit 8 OT Problem 2 OT Problem #2 Pain OT Goal 1 Goal / Goal Update Pt. will report <2/10 pain, 5/7 days per week, with return to daily activities and work without wear of splint Target Visit 8 OT Problem 3 OT Problem #3 Impaired Strength OT Goal 1 Goal / Goal Update Pt. 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
--- NOTE | 2025-03-27 16:07 | OPREHPOC ---
Outpatient Therapy Plan of Care This is a Multidisciplinary Plan of Care that may contain components documented by all disciplines (PT, OT, and ST.) OT Problem 1 OT Problem #1 Knowledge Deficit OT Goal 1 Goal / Goal Update Pt. will demonstrate independence in HEP Pt. will demonstrate independence in use of appropriate therapeutic modalities and manual therapies for home program Target Visit 8 OT Problem 2 OT Problem #2 Pain OT Goal 1 Goal / Goal Update Pt. 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
--- NOTE | 2025-04-24 17:16 | OTOPDC ---
Assessment and note entered by Leyla Kohler, OT Discharge Information Assessment Status Progress Diagnosis Sprain of metacarpophalangeal joint L thumb ICD-10 Condition Codes (OT) Joint stiffness of left hand M25.642,Pain in left hand M79.642,Generalized muscle weakness M62.81 Onset Aug 2024 Subjective Information Pt. has surgery 12/07/24 for L UCL of thumb repair, initially in hard cast, issued Spica splint at [facility] for OP therapy Pt. has been slowly weening spica splint wear and reports she still wears it at work for harder tasks, because she is worried about injuring it and wants to be careful. Pt. reports she feels very strong and is very happy with her results. Reported Pain Level Pain Score 0: Self Report Assessment OT Clinical Summary Pt. is 59 year old F, who presents for progress evaluation s/p L ulnar collateral ligament repair of 1st metacarpal 12/07/24, after complete tear of the ulnar collateral ligament resulting from fall onto hand. Pt. 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 Pt. demonstrates active ROM WNL, reports no pain with use, and demonstrated increasing strength, functional use, and prolonged tolerance for activity without fatigue or pain. Pt. educated and discussed eventual discontinuation of splint use , as she feels comfortable, but reinforced no longer needing splint. Reviewed beneficial strengthening, endurance, and flexibility exercises which will benefit pt. as she continues to increase use of L hand. Pt. in agreement to discharge for therapy on this date due to significant progress made and tolerance for return to daily functional activities. Plan of Care OT Services Indicated No
== END 2025-04-25 11:17 | disposition home or self-care (01) ==
LOC: ANHOT 15:30
PROVIDERS: PCP Internal Medicine; Visit Provider Physician Assistant Surgical
DX: S63.642A Sprain of metacarpophalangeal joint of left thumb, initial encounter (principal)
CPT/HCPCS: 97018; 97110; 97140; 97165; 97530